=== PATIENT | female | born 1975 | race Caucasian/White ===

== ENCOUNTER 2024-01-12 05:48 | Observation (INO) | payer OTHER, SELFPAY ==
[2024-01-12] VITALS (19 sets, daily range): BP systolic 123–157; BP diastolic 78–99; PULSE 74–111; TEMP 36.4–36.9; O2SAT 90–100; BMI 29.8; BMI 29.5
--- NOTE | 2024-01-12 | OP_ITS ---
OPERATION DATE: 01/12/2024 PREOPERATIVE DIAGNOSIS: Acute appendicitis. POSTOPERATIVE DIAGNOSIS: Acute appendicitis. PROCEDURE: Laparoscopic appendectomy. SURGEON: Dimas Vivas M.D. ANESTHESIA: General endotracheal per Dr. Simon. ESTIMATED BLOOD LOSS: Less than 15 mL. INDICATIONS AND CONSENT: Patient is a 48-year-old female with a 12 hour history of abdominal pain in the lower abdomen, leukocytosis and CT scan consistent with acute appendicitis with fecalith. Indications, risks, benefits, alternatives of proceeding with laparoscopic appendectomy were explained extensively to the patient, including risks of bleeding, infection, bowel injury, appendiceal stump leak, blood clot, pulmonary embolus, heart attack, anesthetic complications, need for further surgery or open procedure. All of her questions were answered. Informed consent was obtained. PROCEDURE: Patient brought to the operating room, placed in the supine position. General anesthesia was induced. She was prepped and draped in the usual steroid fashion. Prior to that, a Jimenes catheter was inserted using a sterile technique. A supraumbilical incision was made with the scalpel blade and carried down through subcutaneous tissues using blunt dissection. The fascia was grasped and incised. Two 0 Vicryl stay sutures were placed on either side of the midline fascia. Ruben trocar was then inserted and secured using the stay sutures. The abdomen was then insufflated with carbon dioxide to a pressure of 15 mm/Hg. The scope was then inserted. The abdomen was visualized. Two 5 mm ports were then placed; one in the suprapubic area and one in the left lower quadrant, both under direct visualization. Patient was placed in the Trendelenburg position with the right side up. The appendix was noted to be slightly adhered to the right pelvic side wall. Patient was noted to have an enlarged uterus with multiple large fibroids, normal right ovary and tube. The appendix was grasped with an atraumatic grasper. There was no evidence of perforation or abscess. A window was then created in the avascular portion of the mesoappendix and the appendix was then stapled across its base using an endoscopic stapler, purple load, 45 mm length. The mesoappendix was then divided with the brunson vascular load, 45 mm length. The appendix was then brought out through the umbilical port site in an Endocatch bag. The abdomen was then copiously irrigated until clear. Suture lines were inspected and noted to be hemostatic. All port sites were examined upon withdrawal of the ports. There was noted to be good hemostasis. The umbilical port site fascia was then closed with a 0 Vicryl figure of eight suture. All port sites were infiltrated with 0.5% Marcaine. The skin was then closed with interrupted 4-0 subcuticular Monocryl sutures and skin glue. Sterile dressings applied to the umbilical incision. Patient tolerated the procedures well, was extubated, sent to recovery room in good condition. CC: Ofelia Rodriguez M.D. [facility]
--- NOTE | 2024-01-12 | CONS_ITS ---
CONSULTATION CONSULTATION DATE: ??01/12/2024 CHIEF COMPLAINT:? Abdominal pain. HISTORY OF PRESENT ILLNESS:? Patient is a 48-year-old female who presented to the emergency room with a four hour history of abdominal pain, primarily periumbilical and then localizing down to the right lower quadrant.? Workup in the emergency room revealed evidence of leukocytosis as well as CT findings of a dilated, inflamed appendix with a fecalith, evidence of perforation.? Patient denies any previous abdominal surgery, is on no aspirin or nonsteroidal anti- inflammatory drugs.? SOCIAL HISTORY:? Patient denies tobacco use or illicit drug use.? ALLERGIES:? Patient has no known drug allergies.? MEDICATIONS:? She is on no home medications.? PAST SURGICAL HISTORY:? Denies any previous surgical operations. FAMILY HISTORY:? Noncontributory. REVIEW OF SYSTEMS:? Ten system review of systems negative for recent weight loss or weight gain.? She denies increased fatigue or light-headedness, has had no headache or tinnitus.? No sinus congestion.? No sore throat or hoarseness.? No chest pain, palpitations or syncope.? No chronic cough, shortness of breath or hemoptysis.? She has had the abdominal pain, some nausea, emesis x1.? She has had some looser stools with a small amount of rectal bleeding.? No dysuria, frequency, urgency or hematuria.? No headaches, seizures or tremors.? No easy bruising or bleeding.? No heat or cold intolerance.? No polydipsia, polyphagia, polyuria. PHYSICAL EXAM:? Patient?s BMI is 30.? She is afebrile, tachycardic in the one- teens.? Blood pressure is 124/72.? Respiratory rate is 18.? O2 saturation is 95% on room air. General:? In general, she is a well developed, well nourished female, currently in no acute distress. HEENT:? Normocephalic, atraumatic.? Sclerae anicteric.? Conjunctivae are not injected.? Oral mucosa is moist without lesions.? Neck is supple.? There is no adenopathy or thyromegaly or JVD. Lungs are clear bilaterally. Cardiac exam is regular rhythm and rate without appreciable murmurs, rubs or gallops. Abdomen is soft.? There are positive bowel sounds.? There are right lower quadrant peritoneal signs.? No masses, hepatosplenomegaly or hernias.? No CVA tenderness. Skin is warm and dry without lesions, rashes or ulcers.? Neuro exam is non-focal, non-lateralizing.? Patient is awake, alert, oriented with appropriate affect. IMAGING:? CT scan images were personally reviewed.? CT scan is consistent with acute appendicitis.? Patient also has evidence of a fibroid, enlarged uterus. PLAN:? Indications, risks, benefits, alternatives of proceeding with laparoscopic appendectomy were explained extensively to the patient, including risks of bleeding, infection, scarring, pain, bowel injury, appendiceal stump leak, blood clot, pulmonary embolus, heart attack, anesthetic complications, need for further surgery or open procedure.? All of her questions were answered.? Informed consent was obtained.? She will be given IV antibiotics and proceed with appendectomy. CC:? Ofelia Rodriguez M.D. [facility] CENTERGeoff
--- NOTE | 2024-01-12 06:11 | CT_ITS ---
The [address] [address] Patient Name: MARIANNE BATISTA MRN: [id number] date: 1975 Sex: F Assigned Patient Location: ER Current Patient Location: ED.MAIN Accession/Order Number: [id number] Exam Date: 01/12/2024 06:40 Report Date: 01/12/2024 07:18 At the request of: LARISSA MARKER Procedure: CT abdomen pelvis w con EXAM: CT abdomen pelvis w con HISTORY: Lower abd pain and bleeding. COMPARISON: None. TECHNIQUE: Routine CT abdomen/pelvis with intravenous contrast. Dose reduction techniques were achieved by using automated exposure control and/or adjustment of mA and/or kV according to patient size and/or use of iterative reconstruction technique. FINDINGS: Lower chest: Unremarkable. Solid organs: The liver appears fatty infiltrated. The gallbladder, biliary tree, pancreas and left adrenal gland are unremarkable. There is a 1.6 x 1.1 cm right adrenal nodule measuring 37 Hounsfield units. There is retained lobulation along the contour of both kidneys. The left renal vein is retroaortic, a variant of normal. Bowel: The rectum is unremarkable. Nonobstructive bowel gas pattern with a small amount of stool within the colon. There are a few diverticula along the descending and sigmoid colon without diverticulitis. The appendix is dilated measuring up to 1.2 cm and contains a few appendicoliths measuring up to 0.6 cm there are mild stranding densities within the periappendiceal fat. In the right clinical setting these findings are consistent with acute appendicitis. The distal esophagus and stomach are unremarkable and the small bowel is normal caliber. Vasculature: The abdominal aorta is unremarkable. There are a few small atheromatous calcifications along the right common iliac artery. The left renal vein is retroaortic, a variant of normal. The IVC is unremarkable. Inflammation: As previously described. There is no free air, free fluid or abscess. Lymphadenopathy: There are no pathologically enlarged lymph nodes. Pelvis: The uterus is enlarged and fibroid. The adnexal regions are unremarkable. The urinary bladder is almost completely collapsed however grossly unremarkable. Musculoskeletal: There is a small of fat extending into the umbilicus. There is slight levoscoliosis of the lumbar spine. There are small endplate spurs at a few levels along the lumbar spine. CT/CT abdomen pelvis w con IMPRESSION: The appendix is dilated measuring up to 1.2 cm and contains a few appendicoliths measuring up to 0.6 cm there are mild stranding densities within the periappendiceal fat. In the right clinical setting these findings are consistent with acute appendicitis. The distal esophagus and stomach are unremarkable and the small bowel is normal caliber. There is no free air, free fluid or abscess. The bowel gas pattern is nonobstructive. There are a few diverticula along the descending and sigmoid colon without diverticulitis. The liver appears fatty infiltrated. There is a 1.6 x 1.1 cm right adrenal nodule measuring 37 Hounsfield units. The left renal vein is retroaortic, a variant of normal. The uterus is enlarged and fibroid. Electronically authenticated by: RO BOOGIE Date: 01/12/2024 07:18
--- NOTE | 2024-01-12 06:13 | ED_ITS ---
HPI - Abdominal Pain General Chief Complaint: Abdominal Pain Stated Complaint: ABD PAIN Time Seen by Provider: 01/12/24 05:51 Source: patient Mode of arrival: walk-in History of Present Illness HPI narrative: This 48-year-old female presents for evaluation of lower abdominal pain and bleeding from her rectum. The patient states that she woke up around 230 this morning with nausea and abdominal cramping. She went to the bathroom several times and had diarrhea. She did not look at her stool until the fifth and sixth time that she had diarrhea because it was dark in the bathroom. The last time she looked she saw bright red blood in the toilet. She is having lower abdominal cramping with her diarrhea. She states she feels hot and nauseated. She has not vomited. She states she has had diverticulitis in the past but that felt differently. She states she is concerned and anxious because her mother has problems with her colon. The patient denies any chest pain or shortness of breath. She last ate an oven pizza from [employer]. She has never had a colonoscopy. The pain is cramping and moderate to severe across her lower abdomen. She denies any back pain. She has never had any abdominal surgery in the past. She is on day 5 of her menstrual period but states that she does not have much bleeding at this point in her cycle. She took a Tylenol earlier this morning for pain. Related Data Previous Rx's ?Medication ?Instructions ?Recorded amoxicillin-potassium clavulanate 1 tab PO BID #7 tabs 01/12/24 1,000 mg-62.5 mg tablet,ext.rel 12hr (Augmentin XR) Allergies Allergy/AdvReac Type Severity Reaction Status Date / Time No Known Drug Allergies Allergy Verified 01/12/24 05:59 Review of Systems ROS Status of ROS 10 or more systems reviewed and unremark able except as noted in history and below [facility] PFS Surgical History (Updated 01/12/24 @ 09:27 by Ofelia Cochran LPN) H/O removal of cyst ?Z98.890 - Other specified postprocedural states (ICD-10) Family History (Updated 01/12/24 @ 09:27 by Ofelia Cochran LPN) Mother Family history of stroke Family history of hypertension Family history of diabetes mellitus Family history of COPD (chronic obstructive pulmonary disease) Father Family history of hypertension Family history of cancer Other Family history of CHF (congestive heart failure) Social History (Updated 01/12/24 @ 09:28 by Ofelia Cochran LPN) Smoking status: Former smoker Second hand tobacco smoke exposure: No Non-prescribed substance use: denies use 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 Known occupational exposures/hazards: No Highest level of school completed/degree received: Associate degree: occupational, technical, vocational program Are you now , , , , never or living with a partner: In a typical week, how many times do you talk on the telephone with family, friends, or neighbors: 3 or more times per week How often do you get together with friends or relatives: 3 or more times per week Little interest or pleasure in doing things: not at all Feeling down, depressed, or hopeless: not at all Feel stressed/tense/nervous/anxious/difficulty sleeping: not at all Due to disability, difficulty making decisions: No Do you think of yourself as: straight/heterosexual Gender Identity: female Exam Narrative Exam Narrative: Vital signs and Nursing Notes reviewed: Patient is afebrile, pulse is elevated at 92 and blood pressure is elevated at 157/97, she is not hypoxic with pulse ox of 100% on room air General: Awake, alert, oriented, uncomfortable appearing female, she is rubbing her lower abdomen, no respiratory distress HEENT: Normocephalic atraumatic, mucous membranes are moist and pink, eyes are clear, normal conjunctiva, vision is grossly intact Chest: Lungs are clear to auscultation with good air entry, there is no wheezing rhonchi or rales appreciated no accessory muscle use, patient is speaking in complete sentences-no chest wall tenderness to palpation CVS: Regular rate and rhythm S1-S2, no murmurs rubs or gallops, pulses are brisk and equal bilaterally ABD: Soft, diffusely tender, patient localizes to the right lower quadrant and left lower quadrant, there is mild referred tenderness with movement of the right leg but patient does not have specific McBurney's point tenderness. Palpation of the right upper quadrant refers pain into the lower abdomen, bowel sounds are normal/hypoactive Rectal exam- declined ( pt was given a hat to use if she needed to use the bathroom again so that we may see her stool) Extremities: Moving all extremities, no lower extremity tenderness or swelling noted, negative Homans' sign, pulses are brisk and equal bilaterally Skin: Normal in appearance without rash,pallor, petechiae or purpura Neuro: No focal deficits Constitutional Vital Signs, click to edit/add: Last Vital Signs Temp 98.1 F 01/12/24 16:39 Pulse 96 H 01/12/24 16:39 Resp 16 01/12/24 16:39 BP 124/81 01/12/24 16:39 Pulse Ox 93 L 01/12/24 16:39 O2 Del Method Room Air 01/12/24 16:39 O2 Flow Rate 2 01/12/24 15:41 Course Vital Signs Vital signs: Vital Signs Temperature 98.0 F 01/12/24 05:54 Pulse Rate 92 H 01/12/24 05:54 Respiratory Rate 16 01/12/24 05:54 Blood Pressure 157/97 H 01/12/24 05:54 Pulse Oximetry 100 01/12/24 05:54 Oxygen Delivery Method Room Air 01/12/24 05:54 Temperature 98.1 F 01/12/24 16:39 Pulse Rate 96 H 01/12/24 16:39 Respiratory Rate 16 01/12/24 16:39 Blood Pressure 124/81 01/12/24 16:39 Pulse Oximetry 93 L 01/12/24 16:39 Oxygen Delivery Method Room Air 01/12/24 16:39 Oxygen Delivery Flow Rate 2 01/12/24 15:41 MDM - Abdominal Pain MDM Narrative Medical decision making narrative: This 48-year-old female presents for evaluation of lower abdominal cramping associated with diarrhea and bleeding. She refused a rectal exam but did have to go to the bathroom and had a small bowel movement with bright red blood adjacent to it in a hat. This was sent to the lab. The patient refused any pain medication because she had taken Tylenol earlier this morning and does not like taking pain medication so she was medicated with IV fluids, Bentyl and Zo tino. Routine labs and CT scan are pending at this time. The patient does state that she has a history of diverticulitis. She will be signed out to the incoming physician at 7 AM. Lab Data Labs: Lab Results 01/12/24 01/12/24 Range/Units 06:20 06:24 WBC 15.3 H (4.0-11.0) 10^3/uL RBC 4.55 (4.20-5.40) 10^6/uL Hgb 10.0 L (12.0-16.0) g/dL Hct 34.3 L (36.0-48.0) % MCV 75.4 L (81.0-99.0) fL MCH 22.0 L (26.7-34.0) pg MCHC 29.2 L (29.9-35.2) g/dL RDW 16.4 H (11.0-15.0) % Plt Count 555 H (150-450) 10^3/uL MPV 9.2 L (9.5-13.5) fL Neut % (Auto) 86.2 H (43.0-75.0) % Lymph % (Auto) 8.3 L (20.5-60.0) % Bee % (Auto) 3.8 (1.7-12.0) % Eos % (Auto) 0.8 L (0.9-7.0) % Baso % (Auto) 0.4 (0.2-2.0) % Neut # (Auto) 13.2 H (1.4-6.5) 10^3/uL Lymph # (Auto) 1.3 (1.2-3.8) 10^3/uL Bee # (Auto) 0.6 (0.3-0.8) 10^3/uL Eos # (Auto) 0.1 (0.0-0.7) 10^3/uL Baso # (Auto) 0.1 (0.0-0.1) 10^3/uL Abs Immat Gran (auto) 0.07 H (0.00-0.03) 10^3/uL Imm/Tot Granulo (auto) 0.5 (0.0-0.5) % Lactate 2.3 H* (0.4-2.0) mmol/L Stool Occult Blood Positive A Stl C. cayetanensis PCR Not detected (NOT DETECTE) Stool Rotavirus (PCR) Not detected (NOT DETECTE) Stool Adenovirus (PCR) Not detected (NOT DETECTE) Stool Astrovirus (PCR) Not detected (NOT DETECTE) Stool Campylobacter PCR Not detected (NOT DETECTE) Stool Cryptosporidium PCR Not detected (NOT DETECTE) St Sh/Enteroin Ecoli PCR Not detected (NOT DETECTE) Stl Enterotoxigenic E PCR Not detected (NOT DETECTE) Stool EPEC (PCR) Not detected (NOT DETECTE) Stl E. histolytica PCR Not detected (NOT DETECTE) Stool Giardia Lamblia PCR Not detected (NOT DETECTE) Stl P. shigelloides PCR Not detected (NOT DETECTE) Stool Salmonella PCR Not detected (NOT DETECTE) Stool Sapovirus (PCR) Not detected (NOT DETECTE) Stl Shiga-like Tx 1 PCR Not detected (NOT DETECTE) St Y.enterocolitica PCR Not detected (NOT DETECTE) Stl Vibrio cholerae PCR Not detected (NOT DETECTE) Stl Enteroaggr Ecoli PCR Not detected (NOT DETECTE) Stl Norovirus GI/GII PCR Not detected (NOT DETECTE) Specimen Source Stool C. difficile Toxin A&B Not detected (NOT DETECTE) Vibrio Culture Not detected (NOT DETECTE) Blood Type O Negative Antibody Screen Negative Discharge Plan Discharge Chief Complaint: Abdominal Pain Clinical Impression: Acute GI bleeding, Acute appendicitis Patient Disposition: Admitted As Inpatient Time of Disposition Decision: 07:35 Discharge Date/Time: 01/12/24 08:45
[2024-01-12] MEDS: 0.9 % SODIUM CHLORIDE 1,000 ML 1000 ML IV (06:28)
[2024-01-12] MEDS: ONDANSETRON PF 4 MG/2 ML VIAL IV (06:28)
[2024-01-12] MEDS: DICYCLOMINE HCL 10 MG CAPSULE 20 MG PO (06:29)
[2024-01-12 06:32] LABS: Campylobacter NOT DETECTED (NOT DETECTE); Enteroaggregative E.coli NOT DETECTED (NOT DETECTE); Plesiomonas shigelloides NOT DETECTED (NOT DETECTE); Salmonella NOT DETECTED (NOT DETECTE); Vibrio NOT DETECTED (NOT DETECTE); Vibrio cholerae NOT DETECTED (NOT DETECTE); Yersinia enterocolitica NOT DETECTED (NOT DETECTE)
[2024-01-12 06:33] LABS: Adenovirus F 40/41 NOT DETECTED (NOT DETECTE); Astrovirus NOT DETECTED (NOT DETECTE); Cryptosporidium NOT DETECTED (NOT DETECTE); Cyclospora cayetanensis NOT DETECTED (NOT DETECTE); Entamoeba histolytica NOT DETECTED (NOT DETECTE); Enteropathogenic E.coli NOT DETECTED (NOT DETECTE); Enterotoxigenic E. coli NOT DETECTED (NOT DETECTE); Giardia lamblia NOT DETECTED (NOT DETECTE); Norovirus GI/GII NOT DETECTED (NOT DETECTE); Rotavirus A NOT DETECTED (NOT DETECTE); Sapovirus NOT DETECTED (NOT DETECTE); Shiga-like toxin-producing E.C NOT DETECTED (NOT DETECTE); Shigella/Enteroinvasive E.coli NOT DETECTED (NOT DETECTE)
[2024-01-12 06:38] LABS: Basophils Absolute Auto 0.1 10^3/uL (0.0-0.1); Basophils Percent Auto 0.4 % (0.2-2.0); Eosinophils Absolute Auto 0.1 10^3/uL (0.0-0.7); Eosinophils Percent Auto 0.8 % (0.9-7.0); Hematocrit 34.3 % (36.0-48.0); Immature Granulocytes Abs Auto 0.07 10^3/uL (0.00-0.03); Immature Granulocytes Pct Auto 0.5 % (0.0-0.5); Lymphocytes Absolute Auto 1.3 10^3/uL (1.2-3.8); Lymphocytes Percent Auto 8.3 % (20.5-60.0); Mean Corpuscular HGB Conc 29.2 g/dL (29.9-35.2); Mean Corpuscular Volume 75.4 fL (81.0-99.0); Mean Platelet Volume 9.2 fL (9.5-13.5); Monocytes Absolute Auto 0.6 10^3/uL (0.3-0.8); Monocytes Percent Auto 3.8 % (1.7-12.0); Neutrophils Absolute Auto 13.2 10^3/uL (1.4-6.5); Neutrophils Percent Auto 86.2 % (43.0-75.0); Platelet Count 555 10^3/uL (150-450); Red Blood Count 4.55 10^6/uL (4.20-5.40); Red Cell Distribution Width 16.4 % (11.0-15.0); White Blood Count 15.3 10^3/uL (4.0-11.0)
[2024-01-12] MEDS: PIPERACILLIN SODIUM/TAZOBACTAM 3.375 GM in 0.9 % SODIUM CHLORIDE 50 ML IV ×3 (07:41→23:14)
[2024-01-12] MEDS: MORPHINE SULFATE 4 MG/ML VIAL IV (07:41)
[2024-01-12 07:43] LABS: Lactate/Lactic Acid 2.3 mmol/L (0.4-2.0)
--- NOTE | 2024-01-12 08:34 | P.HP_ITS ---
HPI H&P: HPI History of Present Illness Chief complaint: ACUTE APPENDICITIS Narrative: Acute onset of abdominal pain about 4 hours prior to coming into the emergency room. CT scan emergency room shows likely acute appendicitis, also leukocytosis and positive lactate with tachycardia. When I saw patient in the ER, patient fairly uncomfortable from a pain standpoint. Denies any other complaints, no URI complaints no UTI complaints no gastroenteritis symptoms other than the abdominal pain, no history of heart disease or strokes. Opioid HPI Opioid Management Most Recent Pain and Opioid Data: Last Pain Scale 8 01/12/24 09:52 Last Pain Assessment 01/12/24 10:20 Last ED Pain Assessment 01/12/24 08:15 Last MAR Pain Assessment 01/12/24 09:52 Last ORT Total Score 0 01/12/24 09:38 Last ORT Risk Category Low Risk 01/12/24 09:38 Review of Systems ROS Status of ROS 10 or more systems reviewed and unremark able except as noted in history and below PFSH PFSH Surgical History (Updated 01/12/24 @ 09:27 by Ofelia Cochran LPN) H/O removal of cyst ?Z98.890 - Other specified postprocedural states (ICD-10) Family History (Updated 01/12/24 @ 09:27 by Ofelia Cochran LPN) Mother Family history of stroke Family history of hypertension Family history of diabetes mellitus Family history of COPD (chronic obstructive pulmonary disease) Father Family history of hypertension Family history of cancer Other Family history of CHF (congestive heart failure) Social History (Updated 01/12/24 @ 09:28 by Ofelia Cochran LPN) Smoking status: Former smoker Second hand tobacco smoke exposure: No Non-prescribed substance use: denies use 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 Known occupational exposures/hazards: No Highest level of school completed/degree received: Associate degree: occupational, technical, vocational program Are you now , , , , never or living with a partner: In a typical week, how many times do you talk on the telephone with family, friends, or neighbors: 3 or more times per week How often do you get together with friends or relatives: 3 or more times per week Little interest or pleasure in doing things: not at all Feeling down, depressed, or hopeless: not at all Feel stressed/tense/nervous/anxious/difficulty sleeping: not at all Due to disability, difficulty making decisions: No Do you think of yourself as: straight/heterosexual Gender Identity: female Meds Home Medications and Allergies Home Medications ?Medication ?Instructions ?Recorded ?Confirmed ?Type No Known Home Medications 01/12/24 01/12/24 History Allergies Allergy/AdvReac Type Severity Reaction Status Date / Time No Known Drug Allergies Allergy Verified 01/12/24 05:59 Exam Constitutional Vital Signs, click to edit/add: Last Vital Signs Temp 98.0 F 01/12/24 05:54 Pulse 74 01/12/24 08:22 Resp 16 01/12/24 08:22 BP 137/80 01/12/24 08:22 Pulse Ox 96 01/12/24 08:22 O2 Del Method Room Air 01/12/24 08:22 Documenting provider has reviewed patient's vital signs: yes Common normals: apparent distress (Moderate painful to) Chest Common normals: inspection of chest normal Respiratory Common normals: normal respiratory effort Cardio Common normals: regular rate, regular rhythm and no murmurs GI Common normals: Normal to inspection, nondistended, normoactive bowel sounds present and soft to palpation; tender Palpation: tender (no rebound tenderness) Details: Rovsing's sign Extremity Common normals: normal to inspection Neuro Common normals: oriented x3 Results Labs Labs: Short CBC 01/12/24 Range/Units 06:24 WBC 15.3 H (4.0-11.0) 10^3/uL Hgb 10.0 L (12.0-16.0) g/dL Hct 34.3 L (36.0-48.0) % Plt Count 555 H (150-450) 10^3/uL Assessment and Plan Assessment and Plan (1) Acute appendicitis: Plan Sinus tachycardia, uncontrolled hypertension, leukocytosis, positive lactate, thrombocythemia secondary to acute appendicitis resulting in severe sepsis-IV fluids, IV antibiotics, blood cultures pending, surgical intervention later today. Plan per surgery postoperatively. History of diverticulosis-this does not feel like her flareup of diverticulitis in the past Iron deficiency anemia-follows an outpatient L Admission status: Although patient does meet severe sepsis criteria, after post appendectomy if it is unruptured discharge disposition per surgery, possible discharge to home later today depending on findings at surgery
[2024-01-12] MEDS: LACTATED RINGER'S SOLUTION 1,000 ML 100 ML IV ×3 (09:23→23:20)
[2024-01-12 09:45] LABS: HCG Qualitative NEGATIVE (NEGATIVE); Internal Control Within Normal Limits
[2024-01-12] MEDS: HYDROMORPHONE HCL 1 MG/ML CARTRIDGE IV (09:52)
[2024-01-12 09:54] LABS: Alanine Aminotransferase 33 U/L (14-59); Albumin Globulin Ratio 0.9; Albumin Level 3.5 g/dL (3.4-5.0); Alkaline Phosphatase 96 U/L (46-116); Anion Gap 12.7; Aspartate Amino Transferase 17 U/L (15-37); BUN Creatinine Ratio 8.3; Bilirubin Total 0.4 mg/dL (0.2-1.0); Calcium 8.4 mg/dL (8.5-10.1); Carbon Dioxide 24.3 mmol/L (21.0-32.0); Chloride 102 mmol/L (98-107); Estimated GFR (African America >60 (>=60); Estimated GFR (Non-African Ame >60 (>=60); Globulin 3.9 g/dL; Glucose 137 mg/dL (74-106); Sodium 135 mmol/L (136-145); Total Protein 7.4 g/dL (6.4-8.2)
[2024-01-12 10:02] LABS: Lactate/Lactic Acid 2.3 mmol/L (0.4-2.0)
[2024-01-12 12:02] LABS: Internal Control Within Normal Limits; Occult Blood Positive
[2024-01-12] MEDS: HYDROMORPHONE HCL 1 MG/ML CARTRIDGE INJ (12:42)
[2024-01-12] MEDS: BUPIVACAINE HCL 0.5% PF 50 MG/10 ML VIAL 20 ML INJ (14:38)
--- NOTE | 2024-01-12 15:19 | PC.NURSE ---
added oxygen due to desaturation when she falls back asleep
[2024-01-12] MEDS: ACETAMINOPHEN 500 MG TABLET 1000 MG PO ×2 (16:43→23:14)
[2024-01-12] MEDS: PANTOPRAZOLE SODIUM 40 MG VIAL IV (17:02)
[2024-01-13] VITALS: BP 119/77; PULSE 110; TEMP 36.4; O2SAT 92
[2024-01-13 03:46] VITALS: BP 107/69; PULSE 110; TEMP 36.9; O2SAT 90
[2024-01-13 04:18] VITALS: O2SAT 91
[2024-01-13 05:43] LABS: Basophils Percent Auto 0.1 % (0.2-2.0); Hematocrit 27.9 % (36.0-48.0); Hemoglobin 8.4 g/dL (12.0-16.0); Immature Granulocytes Abs Auto 0.08 10^3/uL (0.00-0.03); Immature Granulocytes Pct Auto 0.6 % (0.0-0.5); Lymphocytes Absolute Auto 0.9 10^3/uL (1.2-3.8); Mean Corpuscular HGB Conc 30.1 g/dL (29.9-35.2); Mean Corpuscular Hemoglobin 22.2 pg (26.7-34.0); Mean Corpuscular Volume 73.8 fL (81.0-99.0); Mean Platelet Volume 9.4 fL (9.5-13.5); Monocytes Percent Auto 6.7 % (1.7-12.0); Neutrophils Absolute Auto 12.3 10^3/uL (1.4-6.5); Neutrophils Percent Auto 86.6 % (43.0-75.0); Platelet Count 434 10^3/uL (150-450); Red Blood Count 3.78 10^6/uL (4.20-5.40); Red Cell Distribution Width 16.5 % (11.0-15.0); White Blood Count 14.2 10^3/uL (4.0-11.0)
[2024-01-13 06:22] LABS: Alanine Aminotransferase 26 U/L (14-59); Albumin Globulin Ratio 0.8; Alkaline Phosphatase 76 U/L (46-116); Anion Gap 14.3; Aspartate Amino Transferase 11 U/L (15-37); BUN Creatinine Ratio 8.5; Bilirubin Total 0.6 mg/dL (0.2-1.0); Calcium 8.1 mg/dL (8.5-10.1); Carbon Dioxide 25.2 mmol/L (21.0-32.0); Chloride 105 mmol/L (98-107); Estimated GFR (African America >60 (>=60); Estimated GFR (Non-African Ame >60 (>=60); Globulin 3.7 g/dL; Glucose 122 mg/dL (74-106); Potassium 3.5 mmol/L (3.5-5.1); Sodium 141 mmol/L (136-145); Total Protein 6.7 g/dL (6.4-8.2)
--- NOTE | 2024-01-13 07:10 | P.GSPN_ITS ---
Progress Note: A&P Assessment and Plan (1) Acute appendicitis: Assessment and Plan: POD # 1 s/p LS appendectomy for acute appendicitis with localized peritonitis, no perforation or abscess; doing well; decreased wbc, h/h decreased as expected from surgery/hydration; tolerating some regular diet, no N/V; voiding well, pain controlled with Tylenol. Plan discharge to home today; 3 days of oral Augmentin; Aleve as needed for pain, off work at least 1 week; no lifting > 10 lbs for 4 weeks; may shower, no swimming/tub baths for 1 week; follow up with me next Wednesday, January 18 in the [place] office; call sooner if problems/questions. Subjective Subjective Patient reports: no new complaints, feels better, pain is less and voiding w/o difficulty Exam Narrative Exam Narrative: abd: soft, nontender, mild distension, normal bs; incisions without erythema or drainage; no ecchymoses. Constitutional Vital Signs, click to edit/add: Last Vital Signs Temp 98.5 F 01/13/24 03:46 Pulse 110 H 01/13/24 03:46 Resp 14 01/13/24 03:46 BP 107/69 01/13/24 03:46 Pulse Ox 91 L 01/13/24 04:18 O2 Del Method Room Air 01/13/24 04:18 O2 Flow Rate 2 01/12/24 15:41 Urinary Catheter Management Urinary Catheter Management Urethral: Cath placed during this visit: no
[2024-01-13] MEDS: PIPERACILLIN SODIUM/TAZOBACTAM 3.375 GM in 0.9 % SODIUM CHLORIDE 50 ML IV (07:40)
[2024-01-13] MEDS: ACETAMINOPHEN 500 MG TABLET 1000 MG PO (08:18)
[2024-01-13] MEDS: 0.9 % SODIUM CHLORIDE 1,000 ML 1000 ML IV (08:19)
[2024-01-13 08:23] VITALS: BP 124/72; PULSE 112; TEMP 37.6; O2SAT 90
--- NOTE | 2024-01-13 08:37 | P.DS_ITS ---
DS: Providers Provider Date of admission: 01/12/24 08:44 Primary care physician: JOANNA MURRAY Consults: 01/12/24 08:29 Consult to General Surgeon Routine Consulting Provider: Dimas Vivas Reason for consultation: appendicitis Has provider been notified: Yes Consult to Pharmacy Routine Consulting Provider: Reason for consultation: Please Warren me when Med Rec is Updated Has provider been notified: No DS: Diagnosis Discharge Diagnosis (1) Acute appendicitis: Plan Sinus tachycardia, uncontrolled hypertension, leukocytosis, positive lactate, thrombocythemia secondary to acute appendicitis resulting in severe sepsis- improving at the time of discharge status post appendectomy History of diverticulosis-as above Iron deficiency anemia-likely related to vaginal bleeding from large fibroid Admission status: Although patient does meet severe sepsis criteria, after post appendectomy if it is unruptured discharge disposition per surgery, possible discharge to home later today depending on findings at surgery ? DS: Summary Hospital Course Hospital Course: Patient was admitted, placed on IV antibiotic Zosyn for acute appendicitis, unruptured on CT scan, she went to surgery later in the day, appendix still not ruptured at the time, removed without difficulty, postoperatively patient very somnolent and slow to improve. She was watched overnight for that reason. Although understanding her white blood cell count is still elevated she feels much improved, it was unruptured, placed her on oral antibiotics for 5 days. Medically stable. Discussed case with surgery. Here for discharge. Medications see list. Follow-up with PCP and surgery per protocol Status at Discharge Overall status at discharge: patient is not back to baseline Time Spent with Patient Time attestation: Total time spent providing and/or coordinating discharge services: Time spent: greater than 30 minutes Exam Constitutional Vital Signs, click to edit/add: Last Vital Signs Temp 99.6 F 01/13/24 08:23 Pulse 112 H 01/13/24 08:23 Resp 20 01/13/24 08:23 BP 124/72 01/13/24 08:23 Pulse Ox 90 L 01/13/24 08:23 O2 Del Method Room Air 01/13/24 08:23 O2 Flow Rate 2 01/12/24 15:41 Documenting provider has reviewed patient's vital signs: yes Common normals: apparent distress (Moderate painful to) Chest Common normals: inspection of chest normal Respiratory Common normals: normal respiratory effort Cardio Common normals: regular rate, regular rhythm and no murmurs GI Common normals: Normal to inspection, nondistended, normoactive bowel sounds present and soft to palpation; tender Palpation: tender (no rebound tenderness) Details: Rovsing's sign Extremity Common normals: normal to inspection Neuro Common normals: oriented x3 DS: Data Data Completed and Pending Labs on day of discharge: Labs from last 24 hours 01/13/24 01/12/24 01/12/24 04:47 09:24 06:20 WBC 14.2 H RBC 3.78 L Hgb 8.4 L Hct 27.9 L MCV 73.8 L MCH 22.2 L MCHC 30.1 RDW 16.5 H Plt Count 434 MPV 9.4 L Neut % (Auto) 86.6 H Lymph % (Auto) 6.0 L [place] % (Auto) 6.7 Eos % (Auto) 0.0 L Baso % (Auto) 0.1 L Neut # (Auto) 12.3 H Lymph # (Auto) 0.9 L [place] # (Auto) 1.0 H Eos # (Auto) 0.0 Baso # (Auto) 0.0 Abs Immat Gran (auto) 0.08 H Imm/Tot Granulo (auto) 0.6 H Sodium 141 135 L Potassium 3.5 4.0 Chloride 105 102 Carbon Dioxide 25.2 24.3 Anion Gap 14.3 12.7 BUN 6.0 L 6.0 L Creatinine 0.71 0.72 Est GFR ( Amer) >60 >60 Est GFR (Non-Af Amer) >60 >60 BUN/Creatinine Ratio 8.5 8.3 Glucose 122 H 137 H Lactate 2.3 H* Calcium 8.1 L 8.4 L Total Bilirubin 0.6 0.4 AST 11 L 17 ALT 26 33 Alkaline Phosphatase 76 96 Total Protein 6.7 7.4 Albumin 3.0 L 3.5 Globulin 3.7 3.9 Albumin/Globulin Ratio 0.8 0.9 Lipase 20.0 Serum HCG, Qual Negative Stool Occult Blood Positive A Discharge Plan Discharge Disposition: Home, Self-Care Discharge Medications: New amoxicillin-pot clavulanate [Augmentin XR] 1,000-62.5 mg tablet extended release 12 hr 1 tab PO BID Qty: 7 0RF Activity: increase activity as tolerated Activity Detail: may shower, no tub baths or swimming for 1 week; no lifting > 10 lbs for 4 weeks; take Aleve as needed for pain; off work 1 week. Diet: advance to your usual diet Print Language: Georgian Patient Instructions: Appendicitis (GEN) Forms: Portal Instructions Follow Up Appointments: January 18 @ 4:20pm with Dr. Vivas [address] [place] [address] [phone] Discharge Date/Time: 01/13/24 11:06
[2024-01-13 09:58] VITALS: O2SAT 92
--- NOTE | 2024-01-13 11:03 | CM.NOTE ---
Rounds made with Dr. Lee. Dr. Lee reviewed labs & plan of care with Elaine. Discussed + occult blood and may need to followup w outpt colonoscopy and for Elaine to discuss this further with her PCP. Dr Lee also discussed need for Elaine to followup with [facility] to address the fibroid. Elaine verbalized understanding. Plan is for discharge today.
--- NOTE | 2024-01-18 16:06 | CM.DCFOLLOWU ---
Person spoke with:patient How are you feeling? was having breathing issues, but feels they worked themselves out How is your pain? none Did you understand your discharge instructions? yes Do you have any questions about your discharge instructions? no Were you given any prescriptions at discharge? yes Were you able to get your prescriptions filled? yes Do you understand how to take your medications as ordered? yes Do you have any questions about your follow up appointment and do you plan to keep your follow up appointment? no questions, follow up tomorrow with Dr. Vivas Is there anything else that you would like to discuss? no Questions/Comments/Concerns/Other: no
--- NOTE | 2024-01-18 16:16 | CM.DCFOLLOWU ---
2nd attempt 01/18/24
== END 2024-01-13 11:06 | disposition home or self-care (01) ==
LOC: ER 08:26 → MS 08:54
PROVIDERS: Emergency Medicine; Surgery; Admitting Provider Family Medicine; Emergency Provider Emergency Medicine; PCP Family Medicine; Visit Provider Family Medicine
PROC: (CPT 840; principal; 2024-01-12 11:20)
DX: A41.9 Sepsis, unspecified organism (principal); R65.20 Severe sepsis without septic shock; K35.80 Unspecified acute appendicitis; R00.0 Tachycardia, unspecified; I10 Essential (primary) hypertension; D69.6 Thrombocytopenia, unspecified; D50.9 Iron deficiency anemia, unspecified; D25.9 Leiomyoma of uterus, unspecified; D72.829 Elevated white blood cell count, unspecified; R79.89 Other specified abnormal findings of blood chemistry; Z87.891 Personal history of nicotine dependence; N93.9 Abnormal uterine and vaginal bleeding, unspecified; K57.30 Diverticulosis of large intestine without perforation or abscess without bleeding; R19.7 Diarrhea, unspecified
CPT/HCPCS: 44970; 36415; 74177; 80053; 83605; 83690; 84703; 85025; 86850; 86900; 86901; 87507; 88304; 94667; 94761; 96361; 96365; 96372; 96375; 96376; 99285; G0328; G0378; J0330; J0665; J1100; J1170; J2250; J2270; J2405; J2543; J2704; J3010; Q9967

== ENCOUNTER 2024-05-04 10:35 | Outpatient (REF) | payer OTHER, SELFPAY | END 2024-05-04 10:36 | disposition home or self-care (01) | LOC: LAB 10:35 | PROVIDERS: PCP Family Medicine; Visit Provider Obstetrics & Gynecology | DX: N85.2 Hypertrophy of uterus (principal) ==

== ENCOUNTER 2024-05-15 13:25 | Outpatient (OUT) | payer OTHER, SELFPAY ==
--- OUTSIDE RECORDS SUMMARY | 2024-05-15 13:37 | XMS_ITS | CCD ---
Author Organization [facility] CliniSymi Care Team Providers Care Lean Specialist Name Role Phone OFELIA MURRAY Primary Care Unavailable JEREMIAH RUGGIERO Attending JEREMIAH Villarreal Consulting JEREMIAH Villarreal Admitting Unavailable Ofelia Murray MD Primary Care Provider MD Dimas Vivas Attending Provider OFELIA MURRAY Primary Care Physician Dimas VIVAS Attending Unavailable Dimas VIVAS Attending Unavailable OFELIA MURRAY Attending Unavailable OFELIA UMRRAY Referring Unavailable APLING, GALINA Schaefer Attending Unavailable JEANCARLOS DEL VALLE Attending Unavailable APLING, GALINA Schaefer Referring Unavailable HOASAMANTHA FAJARDO Attending Unavailable JEANCARLOS DEL VALLE Attending Unavailable APLING, GALINA Schaefer Referring Unavailable BLACKSTONJEANCARLOS Attending Unavailable APLING, GALINA Schaefer Referring Unavailable BLACKSTONJEANCARLOS Attending Unavailable APLING, GALINA Schaefer Referring Unavailable APLING, GALINA Schaefer Attending Unavailable HUE FISHER Attending Unavailable HUE FISHER Referring Unavailable FLORHUE Rose Referring Unavailable TONIA BIRMINGHAM Attending Unavailable HUE FISHER Referring Unavailable TONIA BIRMINGHAM Attending Unavailable DO Tonia Birmingham Attending Provider [phone] Dimas Vivas Admitting Unavailable Dimas Vivas Attending Unavailable Tonia Birmingham Attending Unavailable Tonia Birmingham Admitting Unavailable Medications Current Medications Medication Drug Class(es) Dates Sig (Normalized) Sig (Original) fluocinonide 0.5 mg/ml topical solution (1 source) Corticosteroid Start: 09-07-2023 fluocinonide (Lidex) 0.05 % external solution Indications: Psoriasis vulgaris (CMS/HCC) Apply to affected areas on the scalp once a day when flared 60 mL 11 09/07/2023 Active hydrocortisone 25 mg/ml topical cream (1 source) Corticosteroid Start: 09-07-2023 hydrocortisone 2.5 % cream Indications: Psoriasis vulgaris (CMS/HCC) Apply to affected areas on the face bid when flared 28 g 11 09/07/2023 Active ketoconazole 20 mg/ml medicated shampoo (1 source) Azole Antifungal Start: 09-09-2023 ketoconazole (NIZOral) 2 % shampoo Indications: Psoriasis vulgaris (CMS/HCC) Apply topically 2 (two) times a week Lather on the scalp and then rinse off a few minutes later. Use a couple times a week 120 mL 11 09/09/2023 Active triamcinolone acetonide 0.001 mg/mg topical ointment (1 source) Corticosteroid Start: 09-07-2023 triamcinolone (Kenalog) 0.1 % ointment Indications: Psoriasis vulgaris (CMS/HCC) Apply topically 2 (two) times a day Apply to affected areas on the ears bid when flared. Avoid the face, armpits, and groin 60 g 09/07/2023 Active Problems Active Problems Problem Classification Problem Date Documented Da te Episodic/Chronic Abdominal pain (1 source) Pain in female pelvis; Translations: [Pelvic and perineal pain] 05-04-2024 Episodic Anxiety disorders (4 sources) Anxiety; Translations: [Other specified anxiety disorders] Onset: 08-31-2023 08-31-2023 Chronic Appendicitis and other appendiceal conditions (2 sources) Acute appendicitis with localized peritonitis; Translations: [Acute appendicitis with localized peritonitis, without perforation or gangrene] Onset: 01-19-2024 Episodic Immunizations and screening for infectious disease (4 sources) Contact with and (suspected) exposure to other viral communicable diseases; Translations: [CONTCT EXPS OTH VIRL COMMUNICABL DZ] Onset: 06-04-2020 Episodic Menstrual disorders (2 sources) Menorrhagia; Translations: [Excessive and frequent menstruation with regular cycle] 05-04-2024 Chronic Other female genital disorders (1 source) Pain in female genitalia on intercourse; Translations: [Unspecified dyspareunia] 05-04-2024 Chronic Other female genital disorders (1 source) Enlarged uterus; Translations: [Hypertrophy of uterus] 05-04-2024 Episodic Other inflammatory condition of skin (3 sources) Psoriasis vulgaris; Translations: [Psoriasis vulgaris] Onset: 08-31-2023 08-31-2023 Chronic Other inflammatory condition of skin (4 sources) Scalp psoriasis; Translations: [Psoriasis, unspecified] Onset: 08-31-2023 08-31-2023 Chronic Other lower respiratory disease (1 source) Cough; Translations: [COUGH] Onset: 06-08-2020 Episodic Other upper respiratory infections (1 source) Acute pharyngitis, unspecified; Translations: [ACUTE PHARYNGITIS UNSPECIFIED] Onset: 06-08-2020 Episodic Past or Other Problems Problem Classification Problem Date Documented Da te Episodic/Chronic Other non-traumatic joint disorders (3 sources) Pain of left wrist; Translations: [Pain in left wrist] Onset: 09-07-2023 08-31-2023 Episodic Other non-traumatic joint disorders (1 source) Instability of joint of left wrist; Translations: [Other instability, left wrist] Onset: 09-07-2023 09-07-2023 Episodic Results Test Name Value Interpretation Reference Range Facil ity HCG ( test) Ql (U)o n 05-04-2024 Interpretation and review of laboratory results Normal [facility] Healthcare Preg Test, Ur Negative [facility] Health care [facility] Pathology Request for Lab Co rpon 05-04-2024 Pathology Request for Lab Jason Normal [facility] Comment on above: Order Comment: PATHO LOGY WATER MAIN INSTALLER HELPER SPECIMEN Result Comment: See report. Scanned copy available in EMR. PERFORMED BY: [place] [address] PATHOLOGIST DELIVERY MOTORCYCLE DRIVER ANNY MAYES M.D. Performed By: #### P ATH TO [facility] #### [address] BI MAMMOGRAM DIAGNOSTIC KILLIAN SYNTHESIS LEFTon 03-14-2024 BI MAMMOGRAM DIAGNOSTIC TOMOSYNTHESIS LEFT This is a summary report. The complete report is available in the patient's medical record. If you cannot access the medical record, please contact the sending organization for a detailed fax or copy. EXAMINATION: BI MAMMOGRAM DIAGNOSTIC TOMOSYNTHESIS LEFT CLINICAL HISTORY:abnormal mammogram COMPARISON: March 01, 2024 . RESULT: Density: There are scattered areas of fibroglandular density With spot compression no suspicious nodule or mass corresponds with mammogram abnormality, March 01, 2024. Please see ultrasound report. IMPRESSION: BIRADS 2 - Benign Follow-up: Routine Screening Mamm IMPRESSION: CATEGORY 2 ? Benign. Board Certified Radiologists. Accredited by the ACR and FDA. MAMMOGRAPHY IS VERY IMPORTANT TO YOUR HEALTH. THE [employer] GUIDELINES RECOMMEND THAT WOMEN 40 YEARS OF AGE AND OLDER SHOULD HAVE A MAMMOGRAM EVERY YEAR. A REMINDER LETTER WILL BE SENT AT THE APPROPRIATE TIME. THIS FACILITY UTILIZES A REMINDER SYSTEM TO ENSURE ALL PATIENTS RECEIVE REMINDER NOTIFICATIONS AT THE APPROPRIATE TIME BASED ON THE RECOMMENDATIONS OF THIS EXAM. THIS INCLUDES REMINDERS FOR ROUTINE SCREENING MAMMOGRAMS, DIAGNOSTIC MAMMOGRAMS IN WHICH THE PATIENT IS ASKED TO RETURN FOR ADDITIONAL VIEWS, OR OTHER BREAST IMAGING INTERVENTIONS WHEN APPROPRIATE. THE PATIENT WILL BE PLACED IN THE APPROPRIATE REMINDER SYSTEM INCLUDING A REMINDER AT THE APPROPRIATE TIME FOR ANY PENDING ADDITIONAL VIEWS. TRANSCRIBED BY: ELECTRONICALLY SIGNED BY: Arnol Delarosa MD Normal Not Available BI US BREAST LIMITED LEFTon 03-14-2024 BI US BREAST LIMITED LEFT This is a summary report. The complete report is available in the patient's medical record. If you cannot access the medical record, please contact the sending organization for a detailed fax or copy. FINDINGS: Sonographic evaluation of the breast demonstrates no worrisome cystic or solid mass lesions. 3 x 4 mm benign cyst 1 o'clock location may contribute to the mammogram findings. Reference is made to the same day left breast mammogram and recent bilateral mammogram of of March 01 2024. IMPRESSION: CATEGORY 2 ? Benign. TRANSCRIBED BY: ELECTRONICALLY SIGNED BY: Arnol Delarosa MD Normal Not Available BI MAMMOGRAM SCREENING TOMOS YNTHESIS BILATERALon 03-01-2024 BI MAMMOGRAM SCREENING TOMOSYNTHESIS BILATERAL This is a summary report. The complete report is available in the patient's medical record. If you cannot access the medical record, please contact the sending organization for a detailed fax or copy. EXAMINATION: BI MAMMOGRAM SCREENING TOMOSYNTHESIS BILATERAL CLINICAL HISTORY:breast cancer screen COMPARISON: There are no previous mammograms available for comparison. RESULT: Density: There are scattered areas of fibroglandular density RIGHT BREAST: Typically benign calcifications. There is no suspicious mass, asymmetry, architectural distortion, or calcification LEFT BREAST: 1 cm focal asymmetry upper outer quadrant posterior depth. No suspicious microcalcification. No significant axillary lymphadenopathy. IMPRESSION: BIRADS 0 - Need Additional Imaging Evaluation Follow-up: Short Interval Follow-up Recommend spot compression left upper outer quadrant CC and MLO projections, true lateral view, and ultrasound left upper outer quadrant Board Certified Radiologists. Accredited by the ACR and FDA. MAMMOGRAPHY IS VERY IMPORTANT TO YOUR HEALTH. THE [employer] GUIDELINES RECOMMEND THAT WOMEN 40 YEARS OF AGE AND OLDER SHOULD HAVE A MAMMOGRAM EVERY YEAR. A REMINDER LETTER WILL BE SENT AT THE APPROPRIATE TIME. THIS FACILITY UTILIZES A REMINDER SYSTEM TO ENSURE ALL PATIENTS RECEIVE REMINDER NOTIFICATIONS AT THE APPROPRIATE TIME BASED ON THE RECOMMENDATIONS OF THIS EXAM. THIS INCLUDES REMINDERS FOR ROUTINE SCREENING MAMMOGRAMS, DIAGNOSTIC MAMMOGRAMS IN WHICH THE PATIENT IS ASKED TO RETURN FOR ADDITIONAL VIEWS, OR OTHER BREAST IMAGING INTERVENTIONS WHEN APPROPRIATE. THE PATIENT WILL BE PLACED IN THE APPROPRIATE REMINDER SYSTEM INCLUDING A REMINDER AT THE APPROPRIATE TIME FOR ANY PENDING ADDITIONAL VIEWS. TRANSCRIBED BY: ELECTRONICALLY SIGNED BY: Arnol Delarosa MD Abnormal Not Available US PELVISon 03-01-2024 US PELVIS EXAM: Pelvic Ultrasound, Transabdominal. REASON FOR EXAM: Enlarged uterus, fibroids seen on CT, heavy period for years. COMPARISON: CT abdomen and pelvis January 12, 2024. TECHNIQUE: Longitudinal and transverse grayscale, color Doppler images of the pelvis obtained transabdominally. Endovaginal exam not performed. FINDINGS: The bladder shows normal shape size and contour. Ureteral jets not visualized. The uterus is enlarged and bulbous. Normal in position. The endometrium is not definitely thickened but poorly visualized. No significant pelvic free fluid. Neither ovary is visualized due to bowel. Multiple isoechoic masses present within the uterus, subserosal and myometrial. The largest is likely submucosal. Dirty posterior shadowing. #1. 5.3 x 4.18 x 4.09 cm #2. 5.81 x 4.67 x 5.02 cm #3. 5.29 x 5.5 x 4.55 cm #4. 4.89 x 4.93 x 2.94 cm Measurements: Uterus: 17.23 x 12.11 x 9.11 cm EM: 0.85 cm Right Ovary: Not visualized Left Ovary: Not visualized IMPRESSION: 1. Enlarged uterus with multiple subserosal and myometrial intrauterine fibroids. Some distort the endometrium possibly submucosal as well. 2. Ovaries not visualized due to bowel gas. *This report is generated using voice recognition reporting (KeepIdeas). On occasion [employer] erroneously drops words from the report or replaces the spoken word with similar sounding words. Please call with any questions/concerns regarding this report.* Dictated and transcribed 03/02/24/jazz This report has been electronically signed and approved by the interpreting radiologist. Electronically Signed Alfredo yHman II, M.D. 2024-03-02 17:14:13 Normal Not Available Cytology Cervical or vaginal smear or scraping studyOrdered By: Patsy Gomes on 02-22-2024 [facility] Ambulatory Visit Summaryon 0 01-19-2024 Ambulatory Visit Summary Ambulatory Visit Summary MARIANNE BATISTA :1975 Visit Date:01/19/2024 Ambulatory Visit Instructions Your Care Team Attending Physician - YANETH WHITNEY, Dimas Beltran Primary Care Physician - TREVOR WHITNEY, OFELIA Gordillo Procedures Performed Laparoscopic appendectomy (01/12/2024), Excision of cyst. Allergies No Known Allergies No Known Medication Allergies Problems Ongoing - Any problem that you are currently receiving treatment for. Anxiety Psoriasis of scalp Patient Survey You may receive a survey via text or e-mail asking about your office visit. Please share your experience with us by completing your survey. We appreciate your feedback and thank you for choosing us for your care. Normal [facility] General Surgery Office/Clini c Noteon 01-19-2024 General Surgery Office/Clinic Note General Surgery Office/Clinic Note Chief Complaint post operative follow up HPI Staff 7 day post operative follow up post lap appendectomy completed while in-patient at [facility]. Denies pain or discomfort, no use of pain medication. Denies bleeding or drainage. Bowels moving well. Completed entire course of ATB. History of Present Illness 1 week s/p LS appendectomy for acute appendicitis; pathology consistent with acute appendicitis with microperforation; patient doing well, denies pain, no fevers, no N/V; normal bms, voiding well; no drainage from incisions; no strenuous activities. Review of Systems PHQ Score Initial Depression Screen Score: 0 SCORE ROS - Provider Constitutional: no fever, no sweats, no weight loss. Eyes: no glasses, no blurred vision, no visual loss. ENMT: no dentures, no hoarseness, no swallowing difficulties, no hearing loss, no ear infection(s), no nose bleeds. Cardiovascular: normal blood pressure, no chest pain, regular heartbeat, no heart murmur. Respiratory: no shortness of breath, no cough, no asthma, no wheezing. Gastrointestinal: no nausea, no vomiting, no diarrhea, no constipation, no blood in stool, no change in bowel habits, no abdominal pain, no hepatitis. Genitourinary: no kidney stones, no urine infection, no dysuria. Musculoskeletal: no pain, no weakness. Skin: no changing moles, no rash, no skin lumps. Neurologic: no seizures, no epilepsy, no headache. Psychiatric: no emotional or psychiatric problem. Heme/Lymph: no bleeding problems, no anemia, no blood clots, no transfusions. Allergy/Immunologic: no swollen lymph nodes/glands, no IV drug abuse. Other: Additional ROS info: Except as noted in the above Review of Systems and in the History of Present Illness, all other systems have been reviewed and are negative or noncontributory. Physical Exam abd: soft, normal bs, nontender, nondistended; incisions without erythema or drainage; minimal resolving ecchymoses Assessment/Plan 1. Acute appendicitis with localized peritonitis without abscess (K35.30: Acute appendicitis with localized peritonitis, without perforation or gangrene) patient doing well; continue no lifting > 10 lbs for 3 weeks; call with problems/questions; watch for increased pain, N/V or fevers; patient to f/u with her WATER MAIN INSTALLER HELPER regarding fibroids noted on ct scan and at time of surgery. Follow-up No qualifying data available Problem List/Past Medical History Ongoing Acute appendicitis with localized peritonitis without abscess Anxiety Psoriasis of scalp Historical No qualifying data Procedure/Surgical History Laparoscopic appendectomy (01/12/2024), Excision of cyst. Medications No active medications Allergies No Known Allergies No Known Medication Allergies Social History Alcohol - Denies Alcohol Use, 01/19/2024 Substance Abuse - Denies Substance Abuse, 01/19/2024 Tobacco Former smoker, quit more than 30 days ago Tobacco Use:. Never Smokeless Tobacco Use:. Cigarettes, 1 per day. Started age 15.0 Years. Stopped age 38 Years., 01/19/2024 Family History Hypertension: Father. Parkinson disease: Father. Renal failure syndrome: Mother. Stroke: Mother. Normal [facility] Comment on above: Result Comment: Elec tronically Signed By: YANETH WHITNEY, Dimas Aquino.br\Date and Time Signed: 01/19/24 15:25 EDT Mp 01-12-2024 L Specimen: [id number] Received: 01/13/24 Status: MICHAEL Tarango Num: [id number] Spec Type: Surgical Subm Dr: Dimas Vivas MD FACS Tissues: A Appendix - Other than Incidental (APPENDIX) Procedures: HE/2, Gross/Micro L3 Age/ Patient Sex Location Account Attending Physician Marianne Batista 48/F [facility] [id number] Dimas Vivas MD FACS SPEC NUM: [id number] RECD: 01/13/24 STATUS: MICHAEL REMathew NUM: [id number] COOPER: 01/12/[address]: Dimas Vivas MD FACS ENTERED: 01/13/[address] [facility] [address]: Karissa,Lab SPEC TYPE: Surgical DEPT: NAY FRITZ ORDERED: HE/2, Gross/Micro L3 ORDERED: HE/2, Gross/Micro L3 Pathological Diagnosis Appendix, appendectomy: -Severe acute suppurative and hemorrhagic appendicitis with focal rupture and patchy severe acute serositis -Also apparently nonviable proximal margin, still with marked acute inflammation Clinical Information Acute appendicitis Gross Description Received in formalin labeled with the patient's name, date of and appendix is a 5.6 cm in length by 0.8 to 1.1 cm in diameter vermiform appendix with attached mesoappendix and covered by dusky seay serosa with exudate material covering the distal tip. The proximal margin contains a staple line which is removed and the adjacent tissue is inked blue and shaved. Cut sections reveal an area of perforation within the distal tip coming to within 4.6 cm of the proximal margin. The remaining lumen is lined by partially hemorrhagic, seay mucosa and contains semisolid, seay fecal material. No discrete masses or polyps are present. The appendiceal wall measures 0.1 cm. Station Cashier sections are submitted in A1 (base and midportion) and A2 (entire distal tip to include perforated area). TW Specimen: [id number] Received: 01/13/24 Status: MICHAEL Tarango Num: [id number] Spec Type: Surgical Subm Dr: Dimas Vivas MD FACS Tissues: A Appendix - Other than Incidental (APPENDIX) Procedures: HE/2, Gross/Micro L3 Patient: SusannaMarianne [id number] (Continued) Specimen: [id number] Received: 01/13/24 (Continued) Signed (signature on file) Princess Carlos MD 01/15/24 1434 Specimen: [id number] Received: 01/13/24 Status: MICHAEL Tarango Num: [id number] Spec Type: Surgical Subm Dr: Dimas Vivas MD FACS Tissues: A Appendix - Other than Incidental (APPENDIX) Procedures: MIGEL/Faviola Gross/Micro L3 Patient: Marianne Batista [id number] (Continued) Specimen: [id number] Received: 01/13/24 (Continued) CPT Codes 03102 Specimen: [id number] Received: 01/13/24 Status: MICHAEL Tarango Num: [id number] Spec Type: Surgical Subm Dr: Dimas Vivas MD FACS Tissues: A Appendix - Other than Incidental (APPENDIX) Procedures: MIGEL/Faviola, Gross/Micro L3 Patient: Marianne Batista [id number] (Continued) Signed (signature on file) Rito-Julian Carlos MD 01/15/24 1434 Normal [facility] XR WRIST 3+ VIEWS LEFTon XR WRIST 3+ VIEWS LEFT EXAM: XR WRIST 3+ VIEWS LEFT HISTORY: Wrist pain COMPARISON: None available TECHNIQUE: 4 views of the wrist obtained. FINDINGS: No acute fracture or dislocation. Carpal and radiocarpal alignment is satisfactory. Soft tissues are within normal limits. IMPRESSION: No acute osseous abnormality. ELECTRONICALLY SIGNED BY: Remy Molina DO Normal Not Available XR Wrist - left 3 Viewson No acute osseous abnormality. ELECTRONICALLY SIGNED BY: Remy Molina DO IMAGING EXAM: XR WRIST 3+ VIEWS LEFT HISTORY: Wrist pain COMPARISON: None available TECHNIQUE: 4 views of the wrist obtained. FINDINGS: No acute fracture or dislocation. Carpal and radiocarpal alignment is satisfactory. Soft tissues are within normal limits. IMAGING Remy Molina DO - 08/31/2023 EXAM: XR WRIST 3+ VIEWS LEFT HISTORY: Wrist pain COMPARISON: None available TECHNIQUE: 4 views of the wrist obtained. FINDINGS: No acute fracture or dislocation. Carpal and radiocarpal alignment is satisfactory. Soft tissues are within normal limits. IMPRESSION: No acute osseous abnormality. ELECTRONICALLY SIGNED BY: Remy Molina DO [facility] [employer] Radiology Study observation (narrative) [facility] streamit XR Wrist - left 3 ViewsOrder ed By: Remy Molina on 08-31-2023 [employer] Work Phone: COVID-19 PCRon 06-07-2020 SARS-CoV-2, LAMAR Not Detected Normal Not Detected [facility] Comment on above: Result Comment: This nucleic acid amplification test was developed and its performance characteristics determined by [employer]. Nucleic acid amplification tests include PCR and TMA. This test has not been FDA cleared or approved. This test has been authorized by FDA under an Emergency Use Authorization (EUA). This test is only authorized for the duration of time the declaration that circumstances exist justifying the authorization of the emergency use of in vitro diagnostic tests for detection of SARS-CoV-2 virus and/or diagnosis of COVID-19 infection under section 564(b)(1) of the Act, 21 U.S.C. 360bbb-3(b) (1), unless the authorization is terminated or revoked sooner. When diagnostic testing is negative, the possibility of a false negative result should be considered in the context of a patient's recent exposures and the presence of clinical signs and symptoms consistent with COVID-19. An individual without symptoms of COVID-19 and who is not shedding SARS-CoV-2 virus would expect to have a negative (not detected) result in this assay. Performed By: #### C VDPCR #### [facility] [address] [place], [place] [address]ken Edel Vital Signs Date Time Vital Sign Value Performing Clinician Jean Carlosi litmarbella 05-04-2024 09:30-0400 Body mass index (BMI) [Ratio] 29.88 kg/m2 [employer] Work Phone: [employer] 05-04-2024 09:30-0400 Body weight 86.55 kg [employer] Work Phone: [employer] 05-04-2024 09:30-0400 Diastolic blood pressure 80 mm[Hg] [employer] Work Phone: [facility] 05-04-2024 09:30-0400 Systolic blood pressure 130 mm[Hg] Tonia Aikeno DO Work Phone: [facility] 08-31-2023 15:27-0500 Body height 170.2 cm Ofelia Murray MD Work Phone: [facility] 08-31-2023 15:27-0500 Body mass index (BMI) [Ratio] 30.54 kg/m2 Ofelia Murray MD Work Phone: [facility] 08-31-2023 15:27-0500 Body weight 88.45 kg Ofelia Murray MD Work Phone: [facility] 08-31-2023 15:27-0500 Diastolic blood pressure 76 mm[Hg] Ofelia Murray MD Work Phone: [facility] 08-31-2023 15:27-0500 Heart rate 103 /min Ofelia Murray MD Work Phone: [facility] 08-31-2023 15:27-0500 SaO2% (BldA) [Mass fraction] 95 % Ofelia Murray MD Work Phone: [facility] 08-31-2023 15:27-0500 Systolic blood pressure 122 mm[Hg] Ofelia Murray MD Work Phone: [facility] Healthcare Encounters Encounter Date Encounter Type Care Provider Facility Start: 05-04-2024 End: 05-04-2024 ambulatory Tonia [facility] Work Phone: Start: 05-04-2024 End: 05-04-2024 Departed Referred DO Tonia Valencia Work Phone: [facility] Path [facility] [place] [facility] Start: 05-04-2024 End: 05-04-2024 Patient encounter procedure Tonia Aikeno DO Work Phone: [facility] Comment on above: Pre-op examination; Enlarged uterus; Menorrhagia with regular cycle; Pelvic pain in female; Dyspareunia in female; Dysmenorrhea Start: 05-04-2024 End: 05-04-2024 Preprocedural examination done Tonia Aikeno DO Work Phone: [facility] Start: 05-04-2024 End: 05-04-2024 ambulatory TONIA VALENCIA Not Available Start: 04-03-2024 End: 04-03-2024 ambulatory TONIA VALENCIA Not Available Start: 03-14-2024 End: 03-14-2024 ambulatory HUE L FLORO Not Available Start: 03-01-2024 End: 03-01-2024 ambulatory HUE L FLORO Not Available Start: 02-21-2024 End: 02-21-2024 ambulatory HUE L FLORO Not Available Start: 01-19-2024 End: 01-19-2024 ambulatory Dimas VIVAS Facility:[facility] Start: 01-19-2024 End: 01-19-2024 Patient encounter procedure Dimas VIVAS [facility] [place] Start: 01-13-2024 ambulatory Dimas VIVAS Facility:[facility] Start: 01-12-2024 End: 01-12-2024 ambulatory Dimas Vivas [facility] Work Phone: Start: 01-12-2024 End: 01-12-2024 Departed Referred MD Dimas Vivas Work Phone: [facility] Start: 01-12-2024 End: 01-12-2024 ambulatory Dimas VIVAS Facility:CD:[id number] Start: 10-06-2023 End: 10-06-2023 ambulatory GALINA Schaefer APLING Not Available Start: 09-17-2023 End: 09-17-2023 ambulatory JEANCARLOS DEL VALLE Not Available Start: 09-14-2023 End: 09-14-2023 ambulatory JEANCARLOS DEL VALLE Not Available Start: 09-10-2023 End: 09-10-2023 ambulatory JEANCARLOS DEL VALLE Not Available Start: 09-07-2023 End: 09-07-2023 ambulatory SAMANTHA CAMARA Not Available Start: 09-06-2023 End: 09-06-2023 ambulatory GALINA RICHEY Not Available Start: 08-31-2023 End: 08-31-2023 Office outpatient visit 15 minutes Ofelia Murray MD Work Phone: [facility] Comment on above: Left wrist pain (Adeola wolf Dx) Start: 08-31-2023 End: 08-31-2023 ambulatory OFELIA MURRAY Not Available Start: 08-31-2023 Bamboo flowsheet Ofelia hauser MD Work Phone: [facility] Start: 08-31-2023 Bamboo flowsheet Ofelia hauser MD Work Phone: [facility] Start: 06-04-2020 End: 06-05-2020 Patient encounter procedure OFELIA MURRAY Facility: Procedures Date Procedure Procedure Detail Performing Clinician Start: 05-04-2024 Urine test visual color cmprsn meths Tonia Valencia DO Work Phone: Start: 03-14-2024 Mammography Tonia [employer] o DO Work Phone: Start: 02-22-2024 Microscopic observat ion [Identifier] in Cervix by Cyto stain Tonia Valencia DO Work Phone: Start: 02-22-2024 Cytp cerv/vag auto t hin layer prep mnl screen Hue Garry Fisher CNM Work Phone: Start: 01-12-2024 Laparoscopic appendectomy Dimas VIVAS Excision of cyst Dimas Castañeda Comment on above: neck Plan of Treatment Date Care Activity Detail Author Start: 02-21-2029 Screening for malign ant neoplasm of cervix [facility] Start: 03-14-2025 Screening for malign ant neoplasm of breast Mammogram [facility] Start: 09-11-2024 End: 09-11-2024 Patient encounter procedure 09/11/2024 8:30 AM EST Office Visit [facility] [address] [place] [phone] Samantha Camara PA [address] [place] [address] [facility] Start: 05-31-2024 End: 05-31-2024 Patient encounter procedure 05/31/2024 11:20 AM EST Office Visit [facility] [address] [facility] [place] [phone] Laura Gonzalez PA [address] [place] [address] [facility] Start: 05-04-2024 [facility] Start: 03-19-2024 Influenza vaccination Influenz a Vaccine (#1) [facility] Start: 01-16-2024 Influenza vaccination Influenz a Vaccine (#1) [facility] Comment on above: Postponed from 03/19 (Patient Refused) Start: 09-07-2023 End: 09-07-2023 Patient encounter procedure 09/07/2023 8:40 AM EST Office Visit [facility] [address] [place] [phone] Samantha Camara PA [address] [place] [address] [facility] Start: 08-31-2023 End: 08-31-2023 Patient encounter procedure 08/31/2023 3:30 PM EST Office Visit [facility] [address] [place] [phone] Ofelia Murray MD [address] [place], [place] [id number] Arrived [facility] Comment on above: Arrived Start: 03-19-2023 Influenza vaccination Influenz a Vaccine (#1) [facility] Start: 2017 Screening for malign ant neoplasm of breast Mammogram [facility] Start: 2007 Screening for malign ant neoplasm of cervix [facility] Start: 1998 Screening for malign ant neoplasm of cervix Pap Smear [facility] Start: 1977 Screening for malign ant neoplasm of colon [facility] Tissue exam Tissue exam Path ology and Cytology Routine Enlarged uterus Ordered: 05/04/2024 [facility] Work Phone: Comment on above: Ordered: 05/04/2024 Immunizations Immunization Date Immunization Notes Care Provider Mamie garcía 02-28-2022 influenza virus vacc ine, unspecified formulation Ofelia Murray MD Work Phone: [facility] Payers Date Payer Category Payer Self-pay 2019 Private Health Insurance [id number] 2013 Unknown 1977 Unknown [id number] 1977 Unknown [id number] 2.840.1.632779.3.579.2. 1977 Unknown [id number] 2.16.840.1.225298.3.579.2. 1977 Unknown [id number] 2.16.840.1.654348.3.579.2. 1977 Unknown [id number] 2.16.840.1.070290.3.579.2.1258 1977 Unknown [id number] 2.16.840.1.977589.3.579.2.1258 1977 Unknown [id number] 2.16.840.1.433316.3.579.2.1258 1977 Unknown [id number] 2.16.840.1.103223.3.579.2.1258 1977 Unknown [id number] 2.16.840.1.698436.3.579.2.1258 1977 Unknown [id number] 2.16.840.1.221056.3.579.2.1258 1977 Unknown [id number] 2.16.840.1.758082.3.579.2.1258 1977 Unknown [id number] 2.16.840.1.935160.3.579.2.1258 1977 Unknown [id number] 2.16.840.1.304295.3.579.2.1258 1977 Unknown [id number] 2.16.840.1.549536.3.579.2.1258 1977 Unknown [id number] 2.16.840.1.609978.3.579.2.1258 1977 Unknown [id number] 2.16.840.1.510400.3.579.2.1258 1977 Unknown [id number] 2.16.840.1.609221.3.579.2.1258 1977 Unknown [id number] 2.16.840.1.631794.3.579.2.1258 1977 Unknown [id number] 2.16.840.1.209189.3.579.2.1258 1977 Unknown [id number] 2.16.840.1.167860.3.579.2.9 1959 Unknown [id number] Unknown [employer] [id number] Social History Date Type Detail Facility Tobacco smoking stat [facility] Tobacco smoking consumption unknown [facility] Start: 08-30-2023 End: 02-21-2024 History of Social function [facility] Start: 08-30-2023 End: 02-21-2024 Humiliation, Afraid, Rape, and Kick questionnaire [HARK] [facility] Within the last year , have you been afraid of your partner or ex-partner? No [facility] Are you now , , , , never or living with a partner? [facility] How often to you hav e a drink containing alcohol? 2-3 time sa week [facility] How many standard dr inks containing alcohol do you have on a typical day? 1 or 2 [facility] How often do you hav e 6 or more drinks on 1 occasion? Never [facility] How hard is it for y ou to pay for the very basics like food, housing, medical care, and heating Not hard at all [facility] Do you feel stress - tense, restless, nervous, or anxious, or unable to sleep at night because your mind is troubled all the time - these days [OSQ] Only a little [facility] (I/We) worried wheth er (my/our) food would run out before (I/we) got money to buy more. Never true [facility] Start: 1975 Sex Assigned At Not on file [facility] Start: 09-30-2022 Gender identity Identifies as female gender (finding) [facility] Start: 08-31-2023 End: 02-21-2024 Tobacco smoking status OHIS Ex-smoker [facility] Start: 10-21-1991 End: 10-30-2013 History of tobacco use Current smoker [facility] Start: 10-21-1991 End: 10-30-2013 History of tobacco use Cigarette Smoker [facility] Start: 08-31-2023 End: 02-21-2024 Tobacco use and exposure Smokeless tobacco non-user [facility] Start: 08-31-2023 End: 05-04-2024 Alcohol intake Current drinker of alcohol (finding) [facility] Start: 1975 Sex Assigned At Female [facility] Functional Status Date Assessment Result Facility 01-19-2024 Functional Status N/A [facility] [place] History of Present illness Narrative 05-04-2024 Elaine Davis - 05/04/2024 9:30 AM EDT Note Date & Type Note Facility 05-04-2024 History of Presen t illness Narrative Reason for Appointment: Patient ID: Marianne Batista is a 49 y.o. female who presents for Endometrial biopsy and Pre-op Visit Patient presents today for Pre Op/Endometrial Biopsy appointment. Patient is scheduled to undergo Total Abdominal Hysterectomy, possible BSO, possible cystoscopy on 05/24/[address] Birmingham at [facility]. MEDICATIONS Current Outpatient Medications Medication Instructions fluocinonide (Lidex) 0.05 % external solution Apply to affected areas on the scalp once a day when flared hydrocortisone 2.5 % cream Apply to affected areas on the face bid when flared ketoconazole (NIZOral) 2 % shampoo Topical, 2 times weekly, Lather on the scalp and then rinse off a few minutes later. Use a couple times a week triamcinolone (Kenalog) 0.1 % ointment Topical, 2 times daily, Apply to affected areas on the ears bid when flared. 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 Resolved Ambulatory Problems Diagnosis Date Noted No Resolved Ambulatory Problems Past Medical History: Diagnosis Date Eczema 09/10 Enlarged uterus 2023 HISTORY PAST MEDICAL HISTORY SOCIAL HISTORY Past Medical History: Diagnosis Date Eczema 09/10 Enlarged uterus 2023 Social History Tobacco Use Smoking status: Former Current packs/day: 0.00 Average packs/day: 1 pack/day for 22.0 years (22.0 ttl pk-yrs) Types: Cigarettes Start date: 10/21/1991 Quit date: 10/30/2013 Years since quittin.5 Smokeless tobacco: Never Substance Use Topics Alcohol use: Yes Alcohol/week: 6.0 standard drinks of alcohol Types: 6 Glasses of wine per week Drug use: Never FAMILY HISTORY Family History Problem Relation Name Age of Onset Stroke Mother Kaitlyn layne Cancer Father Kirby shannon SURGICAL HISTORY Past Surgical History: Procedure Laterality Date APPENDECTOMY 01/12/2024 CYST REMOVAL 2014 left side neck REVIEW OF SYSTEMS Review of Systems: Review of Systems Constitutional: Negative. HENT: Negative. Eyes: Negative. Respiratory: Negative. Cardiovascular: Negative. Gastrointestinal: Negative. Genitourinary: Positive for dyspareunia and pelvic pain. Musculoskeletal: Negative. Skin: Negative. Neurological: Negative. All other systems reviewed and are negative. Hematological: Negative. Endocrine: Negative. Allergic/Immunologic: Negative. OBJECTIVE Objective: Physical Exam Constitutional: Appearance: Normal appearance. She is well-developed. Genitourinary: Vulva normal. Cardiovascular: Rate and Rhythm: Normal rate and regular rhythm. Pulmonary: Effort: Pulmonary effort is normal. Breath sounds: Normal breath sounds. Abdominal: General: Bowel sounds are normal. There is no distension. Palpations: Abdomen is soft. Tenderness: There is no abdominal tenderness. There is no guarding or rebound. Musculoskeletal: General: No swelling. Normal range of motion. Right lower leg: No edema. Left lower leg: No edema. Neurological: Mental Status: She is alert and oriented to person, place, and time. Skin: General: Skin is warm and dry. Psychiatric: Mood and Affect: Mood normal. Behavior: Behavior normal. Vitals and nursing note reviewed. Exam conducted with a senior linux un[employer] administrator present. Vitals: Estimated body mass index is 29.88 kg/m as calculated from the following: Height as of 04/03/24: 5' 7 . Weight as of this encounter: 190 lb 12.8 oz. BP: 130/80 Patient's last menstrual period was 04/29/2024. ASSESSMENT & PLAN ICD-10-CM 1. Pre-op examination Z01.818 2. Enlarged uterus N85.2 POCT , urine manually resulted Tissue exam 3. Menorrhagia with regular cycle N92.0 4. Pelvic pain in female R10.2 5. Dyspareunia in female N94.10 6. Dysmenorrhea N94.6 EMBX: Patient was placed in dorsal lithotomy position with feet in stirrups. A sterile speculum was placed into the vagina and the cervix was visualized. The cervix was grasped with a single tooth tenaculum. The endometrial pipette was placed through the cervix into the uterus, endometrial curettage was performed and sampling was obtained, endometrial curettings were placed in formalin, and single tooth tenaculum was removed. Excellent hemostasis was assured. All instruments were removed from vagina. Pre Op: Patient is doing well but has complaints of pelvic pain with ultrasound showing an enlarged uterus. I have discussed conservative management vs. surgical management with the patient in detail and patient desires surgical management at this time. Patient will undergo Total Abdominal Hysterectomy, possible BSO, possible cystoscopy on 05/24/2024. Surgical consents were signed, mmc was reviewed, and patient is to proceed to [facility]. Follow Up: Patient is to follow up at 1 & 6 weeks post operative to assess proper healing and recovery from procedure. Documented by Sole Cannon LPN on behalf of: Tonia Birmingham DO documented in this encounter [facility] History of Present illness Narrative 08-31-2023 Ofelia Murray MD - 08/31/2023 3:30 PM EST Note Date & Type Note Facility 08-31-2023 History of Presen t illness Narrative Marianne Batista is a 48 y.o. female presents with chief complaint of Wrist Pain HPI: HPI Patient presents today with left wrist pain, she states it started out about a year ago. She denies no injury to it. She has done a lot of work with it over the years. She does wear brace when it hurts the worst. She states it has been bothering her more recently. Can't pick things up because she drops them. SUBJECTIVE: MEDICATIONS: No current outpatient medications REVIEW OF SYMPTOMS: Review of Systems OBJECTIVE: Visit Vitals BP 122/76 Pulse 103 Ht 5' 7 Wt 195 lb SpO2 95% BMI 30.54 kg/m Smoking Status Former BSA 2.05 m Physical Exam Vitals and nursing note reviewed. Constitutional: Appearance: Normal appearance. Musculoskeletal: Left wrist: No swelling, deformity, effusion, lacerations, snuff box tenderness or crepitus. Normal range of motion. Normal pulse. Comments: Has some tenderness at the radial head after I messed with the hand and wrist. Strength is normal in fingers and thumb as well as grasp. No neuro signs. Neurological: Mental Status: She is alert. ASSESSMENT AND PLAN: Assessment/Plan Problem List Items Addressed This Visit None Visit Diagnoses Left wrist pain - Primary Relevant Orders Ambulatory referral to Orthopaedic Surgery XR wrist 3+ views left (Completed) Unclear diagnosis. Will ask ortho to evaluate. XR today. Consider EMG, but not convinced it is neurologic. documented in this encounter [facility] Evaluation + Plan note Note Date & Type Note Facility Evaluation + Plan note No data available for this section [facility] Evaluation note Note Date & Type Note Facility Evaluation note Diagnosis Left wrist pain- Primary Pain in joint, forearm Left wrist pain Pain in joint, forearm documented in this encounter [facility] Evaluation note Note Date & Type Note Facility Evaluation note No assessment information availa [facility] Work Phone: Evaluation note Note Date & Type Note Facility Evaluation note Diagnosis Pre-op examination Enlarged uterus Hypertrophy of uterus Menorrhagia with regular cycle Pelvic pain in female Unspecified symptom associated with female genital organs Dyspareunia in female Dysmenorrhea documented in this encounter [facility] Hospital Discharge instructions Note Date & Type Note Facility Hospital Discharge instructions No data available for this section [facility] Progress note Note Date & Type Note Facility Progress note No data available for this section [facility] Reason for referral (narrative) Consultation (Routine) - Pending Review Note Date & Type Note Facility Reason for referral (narrati ve) Specialty Diagnoses / Procedures Referred By Althea palomo Referred To Contact Orthopaedic Surgery Diagnoses Left wrist pain Ofelia Murray MD [address] [place] [address] Roque Saeed, DO [address] [address] Referral ID Status Reason Start Date Expiration Date Visits Requested Visits Authorized [id number] Pending Review Specialty Services Required 08/31/2023 02/27/2024 1 1 [facility] Healthcare Summary Purpose Family History No Family History Records Found No data available for this section No Family History Records FoundNo Family History Records FoundNo Family History Records Found Advance Directives No Advanced Directives Records FoundNo Advanced Directives Records FoundNo Advanced Directives Records FoundNo Advanced Directives Records Found Additional Source Comments INFORMATION SOURCE (unrecogn ized section and content) DATE CREATED AUTHOR 06/08/2020 [facility] DATE CREATED AUTHOR AUTHOR'S ORGANIZ ATION 01/21/2024 [facility] DATE CREATED AUTHOR AUTHOR'S ORGANIZ ATION 05/06/2024 [facility] DATE CREATED AUTHOR AUTHOR'S ORGANIZ ATION 05/12/2024 [facility] Care Teams (unrecognized sec tion and content) Lean Specialist Relationship Specialty Start Date End Date Ofelia Murray MD [address] [place] [address] PCP - General Family Medicine 11/24/22 Lean Specialist Relationship Specialty Start Date End Date Ofelia Murray MD [address] [place] [address] PCP - General Family Medicine 11/24/22 Team Status: Inactive Member Role Status Dates Dimas Vivas MD FACS Attending Provider Active Start: January 12, 2024 End: January 12, 2024 Lean Specialist Relationship Specialty Start Date End Date Ofelia Murray MD [address] [place], [place] [phone] PCP - General Family Medicine 11/24/22 Team Status: Inactive Member Role Status Dates Tonia Birmingham DO Attending Provider Active Start : May 04, 2024 End: May 04, 2024 Reason for Visit (unrecogniz ed section and content) Reason Comments Wrist Pain Reason Comments Endometrial biopsy Pre-op Visit Goals (unrecognized section and content) Goals may be documented in a n alternate section No data available for this sectionGoals may be documented in an alternate section FOR RECORDS PERTAINING TO PATIENTS WHO ARE OR HAVE BEEN ENROLLED IN A CHEMICAL DEPENDENCY/SUBSTANCEABUSE PROGRAM, SOME INFORMATION MAY BE OMITTED. This clinical summary was aggregated from multiple sources. Caution should be exercised in using it in the provision of clinical care. This summary normalizes information from multiple sources, and as a consequence, information in this document may materially change the coding, format and clinical context of patient data. In addition, data may be omitted in some cases. CLINICAL DECISIONS SHOULD BE BASED ON THE PRIMARY CLINICAL RECORDS. [facility]. provides no warranty or guarantee of the accuracy or completeness of information in this document.
--- NOTE | 2024-05-15 13:40 | ECG_ITS ---
The Test Date: 2024-05-15 Pat Name: MARIANNE BATISTA Department: Room: - Gender: Female Ct Scan Technologist: : 1975 Requested By: TONIA KLINE Order Number: [id number] Reading MD: SOLITARIO BARKLEY Measurements Intervals Malin Rate: 89 P: 35 GA: 162 QRS: 21 QRSD: 93 T: 29 QT: 367 QTc: 449 Interpretive Statements SINUS RHYTHM Baseline artifact No previous ECG available for comparison Electronically Signed On 05-15-2024 20:19:20 EDT by SOLITARIO BARKLEY
[2024-05-15 14:29] LABS: Basophils Percent Auto 0.6 % (0.2-2.0); Eosinophils Absolute Auto 0.1 10^3/uL (0.0-0.7); Hematocrit 36.2 % (36.0-48.0); Hemoglobin 10.9 g/dL (12.0-16.0); Immature Granulocytes Abs Auto 0.02 10^3/uL (0.00-0.03); Immature Granulocytes Pct Auto 0.3 % (0.0-0.5); Lymphocytes Absolute Auto 1.1 10^3/uL (1.2-3.8); Lymphocytes Percent Auto 17.5 % (20.5-60.0); Mean Corpuscular HGB Conc 30.1 g/dL (29.9-35.2); Mean Corpuscular Hemoglobin 21.8 pg (26.7-34.0); Mean Corpuscular Volume 72.4 fL (81.0-99.0); Mean Platelet Volume 8.5 fL (9.5-13.5); Monocytes Absolute Auto 0.6 10^3/uL (0.3-0.8); Monocytes Percent Auto 8.9 % (1.7-12.0); Neutrophils Absolute Auto 4.5 10^3/uL (1.4-6.5); Neutrophils Percent Auto 71.7 % (43.0-75.0); Platelet Count 399 10^3/uL (150-450); Red Cell Distribution Width 17.6 % (11.0-15.0); White Blood Count 6.3 10^3/uL (4.0-11.0)
[2024-05-15 14:47] LABS: INR 0.97; Partial Thromboplastin Time 28.5 sec (22.3-36.2); Prothrombin Time 10.3 sec (9.0-11.6)
[2024-05-15 14:48] LABS: Alanine Aminotransferase 46 U/L (14-59); Albumin Globulin Ratio 0.8; Albumin Level 3.6 g/dL (3.4-5.0); Alkaline Phosphatase 99 U/L (46-116); Anion Gap 16.3; Aspartate Amino Transferase 29 U/L (15-37); BUN Creatinine Ratio 6.1; Bilirubin Direct 0.1 mg/dL (0.0-0.2); Bilirubin Total 0.5 mg/dL (0.2-1.0); Calcium 8.9 mg/dL (8.5-10.1); Carbon Dioxide 25.1 mmol/L (21.0-32.0); Chloride 100 mmol/L (98-107); Estimated GFR (African America >60 (>=60 mL/min/1.73m^2); Estimated GFR (Non-African Ame >60 (>=60 mL/min/1.73m^2); Globulin 4.8 g/dL; Glucose 109 mg/dL (74-106); Potassium 3.4 mmol/L (3.5-5.1); Sodium 138 mmol/L (136-145); Total Protein 8.4 g/dL (6.4-8.2)
== END 2024-05-15 13:26 | disposition home or self-care (01) ==
LOC: PST 13:26
PROVIDERS: PCP Family Medicine; Visit Provider Obstetrics & Gynecology
DX: Z01.810 Encounter for preprocedural cardiovascular examination (principal); Z01.812 Encounter for preprocedural laboratory examination; N85.2 Hypertrophy of uterus; N92.0 Excessive and frequent menstruation with regular cycle; R10.2 Pelvic and perineal pain
CPT/HCPCS: 36415; 80048; 80076; 85025; 85610; 85730; 86850; 86900; 86901; 93005

== ENCOUNTER 2024-05-24 11:02 | Inpatient (IN) | payer OTHER, SELFPAY ==
[2024-05-15 14:09] VITALS: BP 137/87; PULSE 97; TEMP 36.3; O2SAT 99; BMI 29.4
[2024-05-24] VITALS (17 sets, daily range): BP systolic 108–147; BP diastolic 64–102; PULSE 70–97; TEMP 36.1–36.9; O2SAT 90–99; BMI 29.5
--- OUTSIDE RECORDS SUMMARY | 2024-05-24 06:23 | XMS_ITS | CCD ---
Author Organization [facility] Care Team Providers Care Licensed Occupational Therapist Name Role Phone OFELIA MURRAY Primary Care Unavailable JEREMIAH RUGGIERO Attending JEREMIAH Villarreal Consulting JEREMIAH Villarreal Admitting Unavailable Ofelia Murray MD Primary Care Provider MD Dimas Vivas Attending Provider [phone] OFELIA MURRAY Primary Care Physician Dimas VIVAS Attending Unavailable Dimas VIVAS Attending Unavailable OFELIA MURRAY Attending Unavailable OFELIA MURRAY Referring Unavailable APLING, GALINA Schaefer Attending Unavailable JEANCARLOS DEL VALLE Attending Unavailable APLING, GALINA Schaefer Referring Unavailable HOASAMANTHA Attending Unavailable JEANCARLOS DEL VALLE Attending Unavailable APLING, GALINA Schaefer Referring Unavailable JEANCARLOS DEL VALLE Attending Unavailable APLING, GALINA Schaefer Referring Unavailable JEANCARLOS DEL VALLE Attending Unavailable APLING, GALINA Schaefer Referring Unavailable APLING, GALINA Schaefer Attending Unavailable HUE FISHER Attending Unavailable HUE FISHER Referring Unavailable HUE FISHER Referring Unavailable TONIA BIRMINGHAM Attending Unavailable HUE FISHER Referring Unavailable TONIA BIRMINGHAM Attending Unavailable DO Tonia Birmingham Attending Provider Dimas Vivas Admitting Unavailable Ortega, Dimas Beltran Attending Unavailable Tonia Birmingham Attending Unavailable Tonia Birmingham Admitting Unavailable Medications Current Medications Medication Drug Class(es) Dates Sig (Normalized) Sig (Original) fluocinonide 0.5 mg/ml topical solution (2 sources) Corticosteroid Start: 09-07-2023 fluocinonide (Lidex) 0.05 % external solution Indications: Psoriasis vulgaris (CMS/HCC) Apply to affected areas on the scalp once a day when flared 60 mL 11 09/07/2023 Active hydrocortisone 25 mg/ml topical cream (2 sources) Corticosteroid Start: 09-07-2023 hydrocortisone 2.5 % cream Indications: Psoriasis vulgaris (CMS/HCC) Apply to affected areas on the face bid when flared 28 g 11 09/07/2023 Active ketoconazole 20 mg/ml medicated shampoo (2 sources) Azole Antifungal Start: 09-09-2023 ketoconazole (NIZOral) 2 % shampoo Indications: Psoriasis vulgaris (CMS/HCC) Apply topically 2 (two) times a week Lather on the scalp and then rinse off a few minutes later. Use a couple times a week 120 mL 11 09/09/2023 Active triamcinolone acetonide 0.001 mg/mg topical ointment (2 sources) Corticosteroid Start: 09-07-2023 triamcinolone (Kenalog) 0.1 % ointment Indications: Psoriasis vulgaris (CMS/HCC) Apply topically 2 (two) times a day Apply to affected areas on the ears bid when flared. 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, unspecified] Onset: 08-31-2023 08-31-2023 Chronic Other lower respiratory disease (1 source) Cough; Translations: [COUGH] Onset: 06-08-2020 Episodic Other upper respiratory infections (1 source) Acute pharyngitis, unspecified; Translations: [ACUTE PHARYNGITIS UNSPECIFIED] Onset: 06-08-2020 Episodic Past or Other Problems Problem Classification Problem Date Documented Da te Episodic/Chronic Other non-traumatic joint disorders (4 sources) Pain of left wrist; Translations: [Pain in left wrist] Onset: 09-07-2023 08-31-2023 Episodic Other non-traumatic joint disorders (2 sources) Instability of joint of left wrist; Translations: [Other instability, left wrist] Onset: 09-07-2023 09-07-2023 Episodic Results Test Name Value Interpretation Reference Range Facil ity ALL CBC WITH AUTO DIFFon BASOPHILS ABSOLUTE AUTO 0 [facility] Basophils/100 WBC (Bld) 0.6 % 0.2 - 2.0 % [facility] Eosinophils/100 WBC (Bld) 1 % 0.9 - 7.0 % [facility] Erythrocyte distribution width (RBC) [Ratio] 17.6 % High 11.0 - 15.0 % [facility] Hematocrit (Bld) [Volume fraction] 36.2 % 36.0 - 48.0 % [facility] Hemoglobin (Bld) [Mass/Vol] 10.9 g/dL Low 12.0 - 16.0 g/dL [facility] IMMATURE GRANULOCYTES ABS AUTO 0.02 [facility] Immature granulocytes/100 WBC (Bld) 0.3 % 0.0 - 0.5 % [facility] Interpretation and review of laboratory results Abnormal [facility] LYMPHOCYTES ABSOLUTE AUTO 1.1 Low [facility] Lymphocytes/100 WBC (Bld) 17.5 % Low 20.5 - 60.0 % [facility] MCH (RBC) [Entitic mass] 21.8 pg Low 26.7 - 34.0 pg [facility] MCHC (RBC) [Mass/Vol] 30.1 g/dL 29.9 - 35.2 g/dL [facility] MCV (RBC) [Entitic vol] 72.4 fL Low 81.0 - 99.0 fL [facility] MONOCYTES ABSOLUTE AUTO 0.6 [facility] Monocytes/100 WBC (Bld) 8.9 % 1.7 - 12.0 % [facility] NEUTROPHILS ABSOLUTE AUTO 4.5 [facility] Neutrophils/100 WBC (Bld) 71.7 % 43.0 - 75.0 % [facility] Platelet mean volume (Bld) [Entitic vol] 8.5 fL Low 9.5 - 13.5 fL [facility] EO # 0.1 [facility] PLT 399 [facility] RBC 5 [facility] WBC 6.3 [facility] HCG ( test) Ql (U)o n 05-04-2024 Interpretation and review of laboratory results Normal [facility] Healthcare Preg Test, Ur Negative [facility] Pathology Request for Lab Co rpon 05-04-2024 Pathology Request for Lab Jason Normal [facility] Comment on above: Order Comment: PATHO LOGY PRODUCTION CONTROL PEGBOARD CLERK SPECIMEN Result Comment: See report. Scanned copy available in EMR. PERFORMED BY: [place] [address] PATHOLOGIST TRACK LINER OPERATOR ANNY MAYES M.D. Performed By: #### P ATH TO [facility] #### [address] BI MAMMOGRAM DIAGNOSTIC KILLIAN SYNTHESIS LEFTon [...] IS VERY IMPORTANT TO YOUR HEALTH. THE [employer] GUIDELINES RECOMMEND THAT WOMEN 40 [...] IS VERY IMPORTANT TO YOUR HEALTH. THE [employer] GUIDELINES RECOMMEND THAT WOMEN 40 [...] report is generated using voice recognition reporting (UniYu). On occasion [employer] erroneously drops words from the report or replaces the spoken word with similar sounding words. Please call with any questions/concerns regarding this report.* Dictated and transcribed 03/02/24/dpd This report has been electronically signed and approved by the interpreting radiologist. Electronically Signed Alfredo Hyman II, M.D. 2024-03-02 17:14:13 Normal Not Available Cytology Cervical or vaginal smear or scraping studyOrdered By: Patsy Gomes on 02-22-2024 [facility] Ambulatory Visit Summaryon 0 01-19-2024 Ambulatory Visit Summary Ambulatory Visit Summary MARIANNE BATISTA :1975 Visit Date:01/19/2024 Ambulatory Visit Instructions Your Care Team Attending Physician - ORTEGA WHITNEY, Dimas Beltran Primary Care Physician - [...] for choosing us for your care. Normal [place] General Surgery Office/Clini c Noteon 01-19-2024 General Surgery Office/Clinic Note General Surgery Office/Clinic Note Chief Complaint post operative follow up HPI Staff 7 day post operative follow up post lap appendectomy completed while in-patient at [facility]. 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 Stroke: Mother. Normal [place] Comment on above: Result Comment: Elec tronically Signed By: ORTEGA WHITNEY, Dimas Velazquez\Date and Time Signed: 01/19/24 15:25 EDT Mp 01-12-2024 L Specimen: [id number] Received: 06 Status: SOUT Req Num: [id number] Spec Type: Surgical Subm Dr: Dimas Vivas MD FACS Tissues: A Appendix - Other than Incidental (APPENDIX) Procedures: HE/2, Gross/Micro L3 Age/ Patient Sex Location Account Attending Physician Marianne Batista 48/F LABELL [id number] Dimas Vivas MD FACS SPEC NUM: [id number] RECD: 01/13/24 STATUS: MICHAEL TARANGO NUM: [id number] COOPER: 01/12/[address]: Dimas Vivas MD FACS ENTERED: 01/13/24 [facility] DR: Karissa,Lab SPEC TYPE: Surgical DEPT: NAY [...] present. The appendiceal wall measures 0.1 cm. Health Sciences Manager sections are submitted in A1 (base and midportion) and A2 (entire distal tip to include perforated area). TW Specimen: [id number] Received: 01/13/24 Status: MICHAEL Emelina Num: [id number] Spec Type: Surgical Subm Dr: Dimas Vivas MD FACS Tissues: A Appendix - Other than Incidental (APPENDIX) Procedures: MIGELFaviola Gross/Micro L3 Patient: Marianne Batista [id number] (Continued) Specimen: [id number] Received: 01/13/24 (Continued) Signed (signature on file) Princess Carlos MD 01/15/24 1434 Specimen: [id number] Received: 01/13/24 Status: ORLANDOTonny Tarango Num: [id number] Spec Type: Surgical Subm Dr: Dimas Vivas MD FACS Tissues: A Appendix - Other than Incidental (APPENDIX) Procedures: Faviola Gross/Micro L3 Patient: Marianne Batista [id number] (Continued) Specimen: [id number] Received: 01/13/24 (Continued) CPT Codes 16718 Specimen: [id number] Received: 01/13/24 Status: MICHAEL Tarango Num: [id number] Spec Type: Surgical Subm Dr: Dimas Vivas MD FACS Tissues: A Appendix - Other than Incidental (APPENDIX) Procedures: HE/2, Gross/Micro L3 Patient: Marianne Batista [id number] (Continued) Signed (signature on file) Princess Carlos MD 01/15/24 1434 Normal [facility] XR WRIST 3+ VIEWS LEFTon [...] abnormality. ELECTRONICALLY SIGNED BY: Remy Molina DO [facility] Radiology Study observation (narrative) [facility] XR Wrist - left 3 ViewsOrder ed By: Remy Molina on 08-31-2023 [facility] [employer] Work Phone: COVID-19 PCRon 06-07-2020 SARS-CoV-2, LAMAR Not Detected Normal Not Detected [facility] Comment on above: Result Comment: This nucleic acid amplification test was developed and its performance characteristics determined by [employer]. Nucleic acid amplification tests include PCR and [...] assay. Performed By: #### C VDPCR #### [facility] [address] [place] [address] [place] Vital Signs Date Time Vital Sign Value Performing Clinician Per delcid 05-04-2024 09:30-0400 Body mass index (BMI) [Ratio] 29.88 kg/m2 [employer] Work Phone: [facility] [employer] 05-04-2024 09:30-0400 Body weight 86.55 kg [employer] Work Phone: [facility] [employer] 05-04-2024 09:30-0400 Diastolic blood pressure 80 mm[Hg] [employer] Work Phone: [facility] 05-04-2024 09:30-0400 Systolic blood pressure 130 mm[Hg] [employer] Work Phone: [facility] 08-31-2023 15:27-0500 Body height 170.2 cm Ofelia Murray MD Work Phone: [facility] 08-31-2023 15:27-0500 Body mass index (BMI) [Ratio] 30.54 kg/m2 Ofelia Murray MD Work Phone: [facility] 08-31-2023 15:27-0500 Body weight 88.45 kg Oeflia Murray MD Work Phone: [facility] 08-31-2023 15:27-0500 Diastolic blood pressure 76 mm[Hg] Ofelia Murray MD Work Phone: [facility] 08-31-2023 15:27-0500 Heart rate 103 /min Ofelia Murray MD Work Phone: [facility] 08-31-2023 15:27-0500 SaO2% (BldA) [Mass fraction] 95 % Ofelia Murray MD Work Phone: [facility] 08-31-2023 15:27-0500 Systolic blood pressure 122 mm[Hg] Ofelia Murray MD Work Phone: [facility] Healthcare Encounters Encounter Date Encounter Type Care Provider Facility Start: 05-15-2024 End: 05-15-2024 [facility] Result Encounter Generic External Data Provider [facility] Unsolicited Start: 05-15-2024 End: 05-15-2024 [facility] Result Encounter Generic External Data Provider [facility] External Department Unsolicited Start: 05-04-2024 End: 05-04-2024 ambulatory [facility] Work Phone: Start: 05-04-2024 End: 05-04-2024 Departed Referred [facility] Work Phone: [facility] Path [facility] Start: 05-04-2024 End: 05-04-2024 Patient encounter procedure Tonia Molinao DO Work Phone: [facility] Comment on above: Pre-op examination; Enlarged uterus; Menorrhagia with regular cycle; Pelvic pain in female; Dyspareunia in female; Dysmenorrhea Start: 05-04-2024 End: 05-04-2024 Preprocedural examination done Tonia Birmingham DO Work Phone: [facility] Start: 05-04-2024 End: 05-04-2024 ambulatory TONIA MOLINAO Not Available Start: 04-03-2024 End: 04-03-2024 ambulatory TONIA VALENCIA Not Available Start: 03-14-2024 End: 03-14-2024 ambulatory HUE L FLORO Not Available Start: 03-01-2024 End: 03-01-2024 ambulatory HUE L FLORO Not Available Start: 02-21-2024 End: 02-21-2024 ambulatory HUE L FLORO Not Available Start: 01-19-2024 End: 01-19-2024 ambulatory Dimas VIVAS Facility:[facility] Start: 01-19-2024 End: 01-19-2024 Patient encounter procedure Dimas VIVAS [facility] Start: 01-13-2024 ambulatory Dimas VIVAS Facility:[facility] Start: 01-12-2024 End: 01-12-2024 ambulatory Dimas Vivas [facility] Work Phone: Start: 01-12-2024 End: 01-12-2024 Departed Referred MD Dimas Vivas Work Phone: [facility] Path [facility] Start: 01-12-2024 End: 01-12-2024 ambulatory Dimas VIVAS Facility:[id number] Start: 10-06-2023 End: 10-06-2023 ambulatory GALINA RICHEY Not Available Start: 09-17-2023 End: 09-17-2023 ambulatory [...] Comment on above: Left wrist pain (Adeola luciano Dx) Start: 08-31-2023 End: 08-31-2023 ambulatory OFELIA MURRAY Not Available Start: 08-31-2023 Bamboo flowsheet Ofelia hauser MD Work Phone: [facility] Start: 08-31-2023 Bamboo flowsheet Ofelia hauser MD Work Phone: [facility] Start: 06-04-2020 End: 06-05-2020 Patient encounter procedure OFELIA MURRAY Facility: Procedures Date Procedure Procedure Detail Performing Clinician Start: 05-15-2024 ALL CBC WITH AUTO DIFF Tonia Valencia DO Work Phone: Start: 05-04-2024 Urine test visual color cmprsn meths Tonia Valencia DO Work Phone: Start: 03-14-2024 Mammography Tonia Fazi o DO Work Phone: Start: 02-22-2024 Microscopic observat ion [Identifier] in Cervix by Cyto stain Tonia Valencia DO Work Phone: Start: 02-22-2024 Cytp cerv/vag auto t hin layer prep mnl screen Hue Fisher CNM Work Phone: Start: 01-12-2024 Laparoscopic appendectomy Dimas VIVAS Excision of cyst Dimas Castañeda Comment on above: neck Plan of Treatment Date Care Activity Detail Author Start: 02-21-2029 Screening for malign ant neoplasm of cervix [facility] Start: 03-14-2025 Screening for malign ant neoplasm of breast Mammogram [facility] Start: 09-11-2024 End: 09-11-2024 Patient encounter procedure 09/11/2024 8:30 AM EST Office Visit [facility] [address] [place] [id number] Samantha Camara, GALINA [address] [place] [address] [facility] Start: 05-31-2024 End: 05-31-2024 Patient encounter procedure 05/31/2024 11:20 AM EST Office Visit [facility] [address] [place] [id number] Laura Gonzalez PA [address] [place], [place] [id number] [facility] Start: 05-04-2024 [facility] Start: 03-19-2024 Influenza vaccination Influenz a Vaccine (#1) [facility] Start: 01-16-2024 Influenza vaccination Influenz a Vaccine (#1) [facility] Comment on above: Postponed from 03/19 (Patient Refused) Start: 09-07-2023 End: 09-07-2023 Patient encounter procedure 09/07/2023 8:40 AM EST Office Visit [facility] [address] [place] [phone] Samantha Camara PA [address] [place] [address] [facility] Start: 08-31-2023 End: 08-31-2023 Patient encounter procedure 08/31/2023 3:30 PM EST Office Visit [facility] [address] [facility] [place] [address] Ofelia Murray MD [address] [facility] [place] [address] Arrived [facility] Comment on above: Arrived Start: 03-19-2023 Influenza vaccination Influenz a Vaccine (#1) [facility] Start: 2017 Screening for malign ant neoplasm of breast Mammogram [facility] Start: 2007 Screening for malign ant neoplasm of cervix [facility] Start: 1998 Screening for malign ant neoplasm of cervix Pap Smear [facility] Start: 1977 Screening for malign ant neoplasm of colon [facility] Tissue exam Tissue exam Path ology and Cytology Routine Enlarged uterus Ordered: 05/04/2024 [facility] Work Phone: Comment on above: Ordered: 05/04/2024 Immunizations Immunization Date Immunization Notes Care Provider Fa [facility] 02-28-2022 influenza virus vacc ine, unspecified formulation Ofelia Murray MD Work Phone: [facility] Payers Date Payer Category Payer Self-pay 2019 Private Health Insurance [id number] 2013 Unknown 1977 Unknown [id number] 1977 Unknown [id number] 2.16.840.1.428741.3.579.2.727 1977 Unknown [id number] 2.16.840.1.655963.3.579.2.727 1977 Unknown [id number] 2.16.840.1.627428.3.579.2.727 1977 Unknown [id number] 2.16.840.1.650018.3.579.2.1259 1977 Unknown [id number] 2.16.840.1.880487.3.579.2.9 1977 Unknown [id number] 2.16.840.1.448090.3.579.2.9 1977 Unknown [id number] 2.16.840.1.461062.3.579.2.1259 1977 Unknown [id number] 2.16.840.1.827232.3.579.2.1258 1977 Unknown [id number] 2.16.840.1.863530.3.579.2.1258 1977 Unknown [id number] 2.16.840.1.849936.3.579.2.1258 1977 Unknown [id number] 2.16.840.1.714138.3.579.2.1258 1977 Unknown [id number] 2.16.840.1.205766.3.579.2.1258 1977 Unknown [id number] 2.16.840.1.589026.3.579.2.1258 1977 Unknown [id number] 2.16.840.1.785225.3.579.2.1258 1977 Unknown [id number] 2.16.840.1.434165.3.579.2.1258 1977 Unknown [id number] 2.16.840.1.188114.3.579.2.1258 1977 Unknown [id number] 2.16.840.1.437326.3.579.2.1258 1977 Unknown [id number] 2.16.840.1.244025.3.579.2.1258 1977 Unknown [id number] 2.16.840.1.722928.3.579.2.9 1959 Unknown [id number] Unknown [employer] [id number] Social History Date Type Detail Facility Tobacco smoking stat [facility] Tobacco smoking consumption unknown [facility] [...] Only a little [facility] (I/We) worried wheandrea er (my/our) food would run out before (I/we) got money to buy more. Never true [facility] Start: 1975 Sex Assigned At Not on file [facility] Start: 09-30-2022 Gender identity Identifies as female gender (finding) [facility] Start: 08-31-2023 End: 02-21-2024 Tobacco smoking status [facility] Ex-smoker [facility] Start: 10-21-1991 End: 10-30-2013 History of tobacco use Current smoker [facility] Start: 10-21-1991 End: 10-30-2013 History of tobacco use Cigarette Smoker [facility] Start: 08-31-2023 End: 02-21-2024 Tobacco use and exposure Smokeless tobacco non-user [facility] Start: 08-31-2023 End: 05-04-2024 Alcohol intake Current drinker of alcohol (finding) [facility] Start: 1975 Sex Assigned At Female [facility] Functional Status Date Assessment Result Facility 01-19-2024 Functional Status N/A [facility] History of Present illness Narrative 05-04-2024 Elaine [...] on 05/24/[address] Birmingham at [facility]. MEDICATIONS Current Outpatient Medications Medication Instructions [...] nursing note reviewed. Exam conducted with a oven attendant present. Vitals: Estimated body mass index is [...] reviewed, and patient is to proceed to [facility] OR. Follow Up: Patient is to follow [...] note No data available for this section [facility] Evaluation note Note Date & Type Note Facility Evaluation note Diagnosis Left wrist pain- Primary Pain in joint, forearm Left wrist pain Pain in joint, forearm documented in this encounter [facility] Evaluation note Note Date & Type Note Facility Evaluation note No assessment information availa [facility] Work Phone: Evaluation note Note Date & Type Note Facility Evaluation note Diagnosis Pre-op examination Enlarged uterus Hypertrophy of uterus Menorrhagia with regular cycle Pelvic pain in female Unspecified symptom associated with female genital organs Dyspareunia in female Dysmenorrhea documented in this encounter [facility] Hospital Discharge instructions Note Date & Type Note Facility Hospital Discharge instructions No data available for this section [facility] Progress note Note Date & Type Note Facility Progress note No data available for this section [facility] Reason for referral (narrative) Consultation (Routine) - Pending Review Note Date & Type Note Facility Reason for referral (narrati ve) Specialty Diagnoses / Procedures Referred By Althea palomo Referred To Contact Orthopaedic Surgery Diagnoses Left wrist pain Ofelia Murray MD [address] [place] [address] Roque Saeed, [address] [address] Referral ID Status Reason Start Date Expiration Date Visits Requested Visits Authorized [id number] Pending Review Specialty Services Required 08/31/2023 02/27/2024 1 1 [facility] Summary Purpose Family History No Family History Records Found No data available for this section No Family History Records FoundNo Family History Records FoundNo Family History Records Found Advance Directives No Advanced Directives Records FoundNo Advanced Directives Records FoundNo Advanced Directives Records FoundNo Advanced Directives Records Found Additional Source Comments INFORMATION SOURCE (unrecogn ized section and content) DATE CREATED AUTHOR 06/08/2020 [facility] pital DATE CREATED AUTHOR AUTHOR'S ORGANIZ ATION 01/21/2024 [facility] DATE CREATED AUTHOR AUTHOR'S ORGANIZ ATION 05/06/2024 [facility] Special[facility] DATE CREATED AUTHOR AUTHOR'S ORGANIZ ATION 05/19/2024 [facility] Care Teams (unrecognized sec tion and content) Licensed Occupational Therapist Relationship Specialty Start Date End Date Ofelia Murray MD [address] [facility] [place] [address] PCP - General Family Medicine 11/24/22 Licensed Occupational Therapist Relationship Specialty Start Date End Date Ofelia Murray MD [address] [facility] [place] [address] PCP - General Family Medicine 11/24/22 Team Status: Inactive Member Role Status Dates Dimas Vivas MD [facility] Attending Provider Active Start: January 12, 2024 End: January 12, 2024 Licensed Occupational Therapist Relationship Specialty Start Date End Date Ofleia Murray MD [address] [facility] [place] [address] PCP - General Family Medicine 11/24/22 Team Status: Inactive Member Role Status Dates Tonia Birmingham DO Attending Provider Active Start : May 04, 2024 End: May 04, 2024 Licensed Occupational Therapist Relationship Specialty Start Date End Date Ofelia Murray MD [address] [facility] [place] [address] PCP - General Family Medicine 11/24/22 Reason for Visit (unrecogniz ed section and [...] BE BASED ON THE PRIMARY CLINICAL RECORDS. [employer] [facility]. provides no warranty or guarantee of the accuracy or completeness of information in this document.
[2024-05-24 06:33] LABS: Basophils Percent Auto 0.6 % (0.2-2.0); Eosinophils Absolute Auto 0.2 10^3/uL (0.0-0.7); Eosinophils Percent Auto 2.8 % (0.9-7.0); Hematocrit 33.2 % (36.0-48.0); Hemoglobin 9.9 g/dL (12.0-16.0); Immature Granulocytes Abs Auto 0.03 10^3/uL (0.00-0.03); Immature Granulocytes Pct Auto 0.5 % (0.0-0.5); Lymphocytes Absolute Auto 1.9 10^3/uL (1.2-3.8); Lymphocytes Percent Auto 29.7 % (20.5-60.0); Mean Corpuscular HGB Conc 29.8 g/dL (29.9-35.2); Mean Corpuscular Hemoglobin 21.6 pg (26.7-34.0); Mean Corpuscular Volume 72.5 fL (81.0-99.0); Mean Platelet Volume 8.8 fL (9.5-13.5); Monocytes Absolute Auto 0.6 10^3/uL (0.3-0.8); Monocytes Percent Auto 8.7 % (1.7-12.0); Neutrophils Absolute Auto 3.8 10^3/uL (1.4-6.5); Neutrophils Percent Auto 57.7 % (43.0-75.0); Platelet Count 440 10^3/uL (150-450); Red Blood Count 4.58 10^6/uL (4.20-5.40); White Blood Count 6.5 10^3/uL (4.0-11.0)
[2024-05-24] MEDS: LACTATED RINGER'S SOLUTION 1,000 ML 50 ML IV ×2 (06:53→10:05)
[2024-05-24 06:56] LABS: HCG Quantitative <1 mIU/mL
[2024-05-24] MEDS: CEFAZOLIN SODIUM 2 GM/50 ML D5W PREMIX IV (07:36)
--- NOTE | 2024-05-24 09:55 | P.ON_ITS ---
Brief Operative Note Date of procedure: 05/24/24 Pre-op diagnosis general: uterine fiborids, enlarged uterus, dysmenorrhea, dys pareunia Post-op diagnosis: same as pre-op Procedure: NAME OF PROCEDURE: [ ]Total abdominal hysterectomy, bilateral salpingectomy with cystoscopy. PROCEDURE: Patient was taken back to the Operating Room where she was given general anesthesia without difficulty. She was then prepped and draped in the normal sterile fashion. A Pfannenstiel skin incision was then made 2 cm above the symphysis and pubis and carried down to underlying rectus fascia using a Bovie. The fascia was incised in the midline and extended bilaterally using Medina scissors. Two Amy clamps were placed on the superior aspect of the fascia and dissected off the underlying rectus muscle. The same was performed on the inferior aspect as well. The muscle was then in the midline. The peritoneum was identified and entered bluntly. Peritoneum was then extended superiorly and inferiorly with good visualization of the bladder. An O'Xnofmscy-R-Sqnqya retractor was placed into the patient's abdomen. The bowel was packed away with moist laparotomy sponges and the bladder blade was inserted. A Leahey tenaculum was placed on the patient's uterus and used for retraction. LigaSure apparatus was then used to come across the mesosalpingx from the fimbriated end to the uteroovarian ligament on the patient's right side which was then cauterized and transected. TThis wascarried down serially through the broad ligament and across the round ligament. The bladder flap was then created using the Metzenbaum scissors, and thebladder was easily dissected off the patient's lower uterine segment. A curved Lashanda was placed across the uterine artery on the right side which was clamped, transected, and suture ligated using #0 Monocryl. This was performed on the contralateral side as well. The bladder was further dissected and a Zeppelin clamp was then placed across the uterosacral and cardinal ligaments. This was transected and suture ligated using #0 Monocryl. This was performed on the contralateral side as well. The uterus was then amputated using Ayan scissors. The patient's cuff was closed using #0 PDS in a running locked fashion and this was transfixed to the ipsilateral uterosacral and cardinal ligaments. Excellent hemostasis was assured. The patient's abdomen wascopiously irrigated using warm saline. Cystoscopy was performed. Bladder was intact. Efflux was noted from both ostia. Cystoscope was removed.After excellent hemostasis was assured, all instruments were removed from the patient's abdomen. The patient's peritoneum was closed using 3-0 Vicryl in a running fashion. The patient's fascia was closed using #0 Vicryl in a running fashion. The patient's skin was closed using 4-0 vicryl on a luz maria needle. The patient tolerated the procedure well. Sponge, lap, and needle counts were correct times two. Patient taken to the Recovery Room in stable condition Anesthesia: KUMAR Surgeon: Steve Birmingham Wire Charger: Lisa Sellers Estimated blood loss (mL): 100 Pathology: other (uterus and tubes) Condition: stable Disposition: PACU Urinary Catheter Management Urinary Catheter Management Urethral: Cath placed during this visit: no
[2024-05-24] MEDS: BUPIVACAINE LIPOSOME/PF 266 MG/13.3 ML VIAL INJ (10:20)
--- OUTSIDE RECORDS SUMMARY | 2024-05-24 11:37 | XMS_ITS | CCD ---
Author Organization [facility] Care Team Providers Care Chimney Supervisor Brick Name Role Phone OFELIA MURRAY Primary Care Unavailable JEREMIAH RUGGIERO Attending JEREMIAH Villarreal Consulting JEREMIAH Villarreal Admitting Unavailable Ofelia Murray MD Primary Care Provider MD Dimas Vivas Attending Provider [phone] OFELIA MURRAY Primary Care Physician Dimas VIVAS [...] WITH AUTO DIFFon BASOPHILS ABSOLUTE AUTO 0 [facility] Basophils/100 WBC (Bld) 0.6 % 0.2 - 2.0 % [facility] Eosinophils/100 WBC (Bld) 1 % 0.9 - 7.0 % [facility] Erythrocyte distribution width (RBC) [Ratio] 17.6 % High 11.0 - 15.0 % [facility] Hematocrit (Bld) [Volume fraction] 36.2 % 36.0 - 48.0 % [facility] Hemoglobin (Bld) [Mass/Vol] 10.9 g/dL Low 12.0 - 16.0 g/dL [facility] IMMATURE GRANULOCYTES ABS AUTO 0.02 [facility] Immature granulocytes/100 WBC (Bld) 0.3 % 0.0 - 0.5 % [facility] Interpretation and review of laboratory results Abnormal [facility] LYMPHOCYTES ABSOLUTE AUTO 1.1 Low [facility] Lymphocytes/100 WBC (Bld) 17.5 % Low 20.5 - 60.0 % [facility] MCH (RBC) [Entitic mass] 21.8 pg Low 26.7 - 34.0 pg [facility] MCHC (RBC) [Mass/Vol] 30.1 g/dL [...] Interpretation and review of laboratory results Normal [facility] Healthcare Preg Test, Ur Negative [facility] Path[facility] Request for Lab Co rpon 05-04-2024 Pathology Request for Lab Jason Normal [facility] Comment on above: Order Comment: PATHO LOGY FISH SMOKER SPECIMEN Result Comment: See report. Scanned copy available in EMR. PERFORMED BY: [place] [address] PATHOLOGIST MANAGER CONTRACT ANNY MAYES M.D. Performed By: #### P ATH TO [facility] #### [address] BI MAMMOGRAM DIAGNOSTIC KILLIAN SYNTHESIS LEFTon [...] IS VERY IMPORTANT TO YOUR HEALTH. THE [employer] GUIDELINES RECOMMEND THAT WOMEN 40 [...] IS VERY IMPORTANT TO YOUR HEALTH. THE [employer] GUIDELINES RECOMMEND THAT WOMEN 40 [...] report is generated using voice recognition reporting ([employer] - [place]). On occasion [employer] erroneously drops words from the report or [...] studyOrdered By: Patsy Gomes on 02-22-2024 [facility] Ambulatory Visit Summaryon 0 01-19-2024 Ambulatory [...] for choosing us for your care. Normal [facility] General Surgery Office/Clini c Noteon 01-19-2024 General Surgery Office/Clinic Note General Surgery Office/Clinic Note Chief Complaint post operative follow up HPI Staff 7 day post operative follow up post lap appendectomy completed while in-patient at [facility]. Denies pain or discomfort, no use of [...] or fevers; patient to f/u with her FISH SMOKER regarding fibroids noted on ct scan and [...] Renal failure syndrome: Mother. Stroke: Mother. Normal [facility] Comment on above: Result Comment: Elec tronically Signed By: ORTEGA WHITNEY, Dimas Velazquez\Date and Time Signed: 01/19/24 15:25 EDT Mp 01-12-2024 L Specimen: [id number] Received: 06 Status: SOUT Req Num: [id number] Spec Type: Surgical Subm Dr: Dimas Vivas MD FACS Tissues: A Appendix - Other than Incidental (APPENDIX) Procedures: HE/2, Gross/Micro L3 Age/ Patient Sex Location Account Attending Physician Marianne Batista 48/F LABELL [id number] Dimas Vivas MD FACS SPEC NUM: [id number] RECD: 01/13/24 STATUS: MICHAEL TARANGO NUM: [id number] COOPER: 01/12/[address]: Dimas Vivas MD FACS ENTERED: 01/13/[address] [facility] [address]: Karissa,Lab SPEC TYPE: Surgical DEPT: [...] present. The appendiceal wall measures 0.1 cm. Cigarette Making Machine Operator sections are submitted in A1 (base and midportion) and A2 (entire distal tip to include perforated area). TW Specimen: [id number] Received: 01/13/24 Status: MICHAEL Emelina Num: [id number] Spec Type: Surgical Subm Dr: Dimas Vivas MD FACS Tissues: A Appendix - Other than Incidental (APPENDIX) Procedures: MIGELFaviola Gross/Micro L3 Patient: Marianne Batista [id number] (Continued) Specimen: [id number] Received: 01/13/24 (Continued) Signed (signature on file) Princess Carlos MD 01/15/24 1434 Specimen: [id number] Received: 01/13/24 Status: ORLANDOTonny Tarango Num: [id number] Spec Type: Surgical Subm Dr: Dimas Vivas MD FACS Tissues: A Appendix - Other than Incidental (APPENDIX) Procedures: Faviola Gross/Micro L3 Patient: Marianne Batista [id number] (Continued) Specimen: [id number] Received: 01/13/24 (Continued) CPT Codes 01350 Specimen: [id number] Received: 01/13/24 Status: MICHAEL Tarango Num: [id number] Spec Type: Surgical Subm Dr: Dimas Vivas MD FACS Tissues: A Appendix - Other than Incidental (APPENDIX) Procedures: HE/2, Gross/Micro L3 Patient: Marianne Batista [id number] (Continued) Signed (signature on file) Princess Carlos MD 01/15/24 1434 Normal [facility] XR WRIST 3+ VIEWS LEFTon [...] abnormality. ELECTRONICALLY SIGNED BY: Remy Molina DO [facility] Radiology Study observation (narrative) [facility] XR Wrist - left 3 ViewsOrder ed By: Remy Molina on 08-31-2023 [facility] Work Phone: COVID-19 PCRon 06-07-2020 SARS-CoV-2, LAMAR Not Detected Normal Not Detected [facility] Comment on above: Result Comment: This nucleic acid amplification test was developed and its performance characteristics determined by [employer]. Nucleic acid amplification tests include PCR and [...] assay. Performed By: #### C VDPCR #### [facility] Laboratory [address] [place] [address] [place] Vital Signs Date Time Vital Sign Value Performing Clinician Per delcid 05-04-2024 09:30-0400 Body mass index (BMI) [Ratio] 29.88 kg/m2 [employer] Work Phone: [facility] [employer] 05-04-2024 09:30-0400 Body weight 86.55 kg [employer] Work Phone: [facility] [employer] 05-04-2024 09:30-0400 Diastolic blood pressure 80 mm[Hg] [employer] Work Phone: [facility] 05-04-2024 09:30-0400 Systolic blood pressure 130 mm[Hg] [employer] Work Phone: [facility] 08-31-2023 15:27-0500 Body height 170.2 cm Ofelia Murray MD Work Phone: [facility] 08-31-2023 15:27-0500 Body mass index (BMI) [Ratio] 30.54 kg/m2 Ofelia Murray MD Work Phone: [facility] 08-31-2023 15:27-0500 Body weight 88.45 kg Ofelia Murray MD Work Phone: [facility] 08-31-2023 15:27-0500 Diastolic blood pressure 76 mm[Hg] Ofelia Murray MD Work Phone: [facility] 08-31-2023 15:27-0500 Heart rate 103 /min Ofelia Murray MD Work Phone: [facility] 08-31-2023 15:27-0500 SaO2% (BldA) [Mass fraction] 95 % Ofelia Murray MD Work Phone: [facility] 08-31-2023 15:27-0500 Systolic blood pressure 122 mm[Hg] Ofelia Murray MD Work Phone: [facility] Healthcare Encounters Encounter Date Encounter Type Care Provider Facility Start: 05-15-2024 End: 05-15-2024 [facility] Result Encounter Generic External Data Provider [facility] External Department Unsolicited Start: 05-15-2024 End: 05-15-2024 [facility] Result Encounter Generic External Data Provider [facility] External Department Unsolicited Start: 05-04-2024 End: 05-04-2024 ambulatory [facility] Work Phone: Start: 05-04-2024 End: 05-04-2024 Departed Referred DO [facility] Work Phone: [facility] Path Spec [facility] Start: 05-04-2024 End: 05-04-2024 Patient encounter procedure Tonia Molinao DO Work Phone: [facility] OB Comment on above: Pre-op examination; Enlarged uterus; Menorrhagia with regular cycle; Pelvic pain in female; Dyspareunia in female; Dysmenorrhea Start: 05-04-2024 End: 05-04-2024 Preprocedural examination done Tonia Birmingham DO Work Phone: [facility] Start: 05-04-2024 End: 05-04-2024 ambulatory [...] End: 01-19-2024 Patient encounter procedure Dimas VIVAS [facility]issa Start: 01-13-2024 ambulatory Dimas VIVAS Facility:[facility] Start: 01-12-2024 End: 01-12-2024 ambulatory Dimas Vivas [facility] Work Phone: Start: 01-12-2024 End: 01-12-2024 Departed Referred MD Dimas Vivas Work Phone: [facility] Path Spec [facility] Start: 01-12-2024 End: 01-12-2024 ambulatory Dimas VIVAS Facility:CD:[id number] Start: 10-06-2023 End: 10-06-2023 ambulatory GALINA [...] Screening for malign ant neoplasm of cervix [facility] Start: 03-14-2025 Screening for malign ant neoplasm of breast Mammogram [facility] Start: 09-11-2024 End: 09-11-2024 Patient encounter procedure 09/11/2024 8:30 AM EST Office Visit [facility] [address] [place] [id number] Samantha Camara, GALINA [address] [place] [address] [facility] Start: 05-31-2024 End: 05-31-2024 Patient encounter procedure 05/31/2024 11:20 AM EST Office Visit [facility] [address] [place] [id number] Laura Gonzalez PA [address] [place], [place] [id number] [facility] Start: 05-04-2024 [facility] Start: 03-19-2024 Influenza vaccination Influenz a Vaccine (#1) [facility] Start: 01-16-2024 Influenza vaccination Influenz a Vaccine (#1) [facility] Comment on above: Postponed from 03/19 (Patient Refused) Start: 09-07-2023 End: 09-07-2023 Patient encounter procedure 09/07/2023 8:40 AM EST Office Visit [facility] [address] [place] [phone] Samantha Camara PA [address] [place] [address] [facility] Start: 08-31-2023 End: 08-31-2023 Patient encounter procedure 08/31/2023 3:30 PM EST Office Visit [facility] [address] [facility] [place] [address] Ofelia Murray MD [address] [facility] [place] [address] Arrived [facility] Comment on above: Arrived Start: 03-19-2023 Influenza vaccination Influenz a Vaccine (#1) [facility] Start: 2017 Screening for malign ant neoplasm of breast Mammogram [facility] Start: 2007 Screening for malign ant neoplasm of cervix [facility] Start: 1998 Screening for malign ant neoplasm of cervix Pap Smear [facility] Start: 1977 Screening for malign ant neoplasm of colon [facility] Tissue exam Tissue exam Path ology and Cytology Routine Enlarged uterus Ordered: 05/04/2024 [facility] Work Phone: Comment on above: Ordered: 05/04/2024 Immunizations Immunization Date Immunization Notes Care Provider Fa [facility] 02-28-2022 influenza virus vacc ine, unspecified formulation Ofelia Murray MD Work Phone: [facility] Healthcare Payers Date Payer Category Payer Self-pay 2019 Private Health Insurance [id number] 2013 Unknown 1977 Unknown [id number] [id number] 1977 Unknown [id number] 2.16.840.1.884795.3.579.2.727 1977 Unknown [id number] 2.16.840.1.877659.3.579.2.727 1977 Unknown [id number] 2.16.840.1.891427.3.579.2.727 1977 Unknown [id number] 2.16.840.1.418485.3.579.2.1259 1977 Unknown [id number] 2.16.840.1.218981.3.579.2.9 1977 Unknown [id number] 2.16.840.1.740065.3.579.2.9 1977 Unknown [id number] 2.16.840.1.778903.3.579.2.1259 1977 Unknown [id number] 2.16.840.1.783389.3.579.2.1258 1977 Unknown [id number] 2.16.840.1.315904.3.579.2.1258 1977 Unknown [id number] 2.16.840.1.893161.3.579.2.1258 1977 Unknown [id number] 2.16.840.1.533323.3.579.2.1258 1977 Unknown [id number] 2.16.840.1.046170.3.579.2.1258 1977 Unknown [id number] 2.16.840.1.652496.3.579.2.1258 1977 Unknown [id number] 2.16.840.1.942114.3.579.2.1258 1977 Unknown [id number] 2.16.840.1.275726.3.579.2.1258 1977 Unknown [id number] 2.16.840.1.827176.3.579.2.1258 1977 Unknown [id number] 2.16.840.1.543671.3.579.2.1258 1977 Unknown [id number] 2.16.840.1.708666.3.579.2.1258 1977 Unknown [id number] 2.16.840.1.980866.3.579.2.9 1959 Unknown [id number] Unknown [employer] [id number] Social History Date Type Detail Facility Tobacco smoking stat [facility] Tobacco smoking consumption unknown [facility] [...] Start: 08-31-2023 End: 02-21-2024 Tobacco smoking status [facility] Ex-smoker [facility] Start: 10-21-1991 End: 10-30-2013 History of tobacco use Current smoker [facility] Start: 10-21-1991 End: 10-30-2013 History of tobacco use Cigarette Smoker [facility] Start: 08-31-2023 End: 02-21-2024 Tobacco use and exposure Smokeless tobacco non-user [facility] Start: 08-31-2023 End: 05-04-2024 Alcohol intake Current drinker of alcohol (finding) [facility] Start: 1975 Sex Assigned At Female [facility] Functional Status Date Assessment Result Facility [...] on 05/24/[address] Birmingham at [facility]. MEDICATIONS Current Outpatient Medications Medication Instructions fluocinonide [...] nursing note reviewed. Exam conducted with a washer and crusher tender present. Vitals: Estimated body mass index is [...] reviewed, and patient is to proceed to [facility] OR. Follow Up: Patient is to [...] note No data available for this section [facility] Evaluation note Note Date & Type Note Facility Evaluation note Diagnosis Left wrist pain- Primary Pain in joint, forearm Left wrist pain Pain in joint, forearm documented in this encounter [facility] Evaluation note Note Date & Type Note Facility Evaluation note No assessment information availa [facility] Work Phone: Evaluation note Note Date & Type Note Facility Evaluation note Diagnosis Pre-op examination Enlarged uterus Hypertrophy of uterus Menorrhagia with regular cycle Pelvic pain in female Unspecified symptom associated with female genital organs Dyspareunia in female Dysmenorrhea documented in this encounter [facility] Hospital Discharge instructions Note Date & Type Note Facility Hospital Discharge instructions No data available for this section [facility] Progress note Note Date & Type Note Facility Progress note No data available for this section [facility] Reason for referral (narrative) Consultation (Routine) - Pending Review Note Date & Type Note Facility Reason for referral (narrati ve) Specialty Diagnoses / Procedures Referred By Althea palomo Referred To Contact Orthopaedic Surgery Diagnoses Left wrist pain Ofelia Murray MD [address] [place] [address] Roque Saeed, [address] [address] Referral ID Status Reason Start Date Expiration Date Visits Requested Visits Authorized [id number] Pending Review Specialty Services Required 08/31/2023 02/27/2024 [...] and content) DATE CREATED AUTHOR 06/08/2020 [facility] DATE CREATED AUTHOR AUTHOR'S ORGANIZ ATION 01/21/2024 Liu Antonio [facility] DATE CREATED AUTHOR AUTHOR'S ORGANIZ ATION 05/06/2024 [facility] d[facility] Specialists [facility] DATE CREATED AUTHOR AUTHOR'S ORGANIZ ATION 05/19/2024 [facility] ysician Group Care Teams (unrecognized sec tion and content) Chimney Supervisor Brick Relationship Specialty Start Date End Date Ofelia Murray MD [address] [facility] [place] [address] PCP - General Family Medicine 11/24/22 Chimney Supervisor Brick Relationship Specialty Start Date End Date Ofelia Murray MD [address] [facility] [place] [address] PCP - General Family Medicine 11/24/22 Team Status: Inactive Member Role Status Dates Dimas Vivas MD [facility] Attending Provider Active Start: January 12, 2024 End: January 12, 2024 Chimney Supervisor Brick Relationship Specialty Start Date End Date Ofelia Murray MD [address] [facility] [place] [address] PCP - General Family Medicine 11/24/22 Team Status: Inactive Member Role Status Dates Tonia Birmingham DO Attending Provider Active Start : May 04, 2024 End: May 04, 2024 Chimney Supervisor Brick Relationship Specialty Start Date End Date Ofelia Murray MD [address] [facility] [place] [address] PCP - General Family Medicine 11/24/22 Reason [...] BE BASED ON THE PRIMARY CLINICAL RECORDS. [employer] [facility]. provides no warranty or guarantee of the accuracy or completeness of information in this document.
[2024-05-24] MEDS: CEFAZOLIN SODIUM/DEXTROSE,ISO 2 GM/50 ML PIGGYBACK IV ×2 (14:57→21:02)
[2024-05-24] MEDS: LACTATED RINGER'S SOLUTION 1,000 ML 125 ML IV ×2 (14:57→23:27)
[2024-05-24] MEDS: KETOROLAC TROMETHAMINE 30 MG/ML VIAL IVP (14:58)
[2024-05-24] MEDS: OXYCODONE HCL/ACETAMINOPHEN 5MG/325MG 1 TAB PO ×2 (16:39→22:24)
[2024-05-24] MEDS: ENOXAPARIN SODIUM 40 MG/0.4 ML SYRINGE SUBQ (21:02)
[2024-05-25 03:36] VITALS: BP 156/78; PULSE 79; TEMP 36.7; O2SAT 91
[2024-05-25] MEDS: OXYCODONE HCL/ACETAMINOPHEN 5MG/325MG 1 TAB PO ×2 (05:56→12:04)
[2024-05-25 06:37] LABS: Basophils Percent Auto 0.2 % (0.2-2.0); Hematocrit 31.4 % (36.0-48.0); Hemoglobin 9.5 g/dL (12.0-16.0); Immature Granulocytes Abs Auto 0.04 10^3/uL (0.00-0.03); Immature Granulocytes Pct Auto 0.4 % (0.0-0.5); Lymphocytes Absolute Auto 1.6 10^3/uL (1.2-3.8); Lymphocytes Percent Auto 14.3 % (20.5-60.0); Mean Corpuscular HGB Conc 30.3 g/dL (29.9-35.2); Mean Corpuscular Hemoglobin 21.8 pg (26.7-34.0); Monocytes Absolute Auto 0.9 10^3/uL (0.3-0.8); Monocytes Percent Auto 8.1 % (1.7-12.0); Neutrophils Absolute Auto 8.4 10^3/uL (1.4-6.5); Platelet Count 405 10^3/uL (150-450); Red Blood Count 4.36 10^6/uL (4.20-5.40); Red Cell Distribution Width 17.3 % (11.0-15.0)
[2024-05-25 07:12] VITALS: BP 128/83; PULSE 80; TEMP 36.8; O2SAT 93
[2024-05-25 07:14] VITALS: PULSE 80
[2024-05-25] MEDS: MAGNESIUM HYDROXIDE 2,400 MG/10 ML ORAL.SUSP 2400 MG PO (08:27)
[2024-05-25 12:00] VITALS: BP 123/76; PULSE 88; TEMP 36.7; O2SAT 95
--- NOTE | 2024-05-25 13:42 | P.GYNPN_ITS ---
BARREL TESTER AND DRAINER - PN: Subj Post-Op Interval history: denies n.v.d.f.c pt denies cp sob ct, ambulating and tolerating diet well, positive flatus Subjective: patient reports feeling better, patient has no complaints, patient desires discharge, pain is well controlled and patient is tolerating oral intake Exam Constitutional Vital Signs, click to edit/add: Last Vital Signs Temp 98.0 F 05/25/24 12:00 Pulse 88 05/25/24 12:00 Resp 18 05/25/24 12:00 BP 123/76 05/25/24 12:00 Pulse Ox 95 05/25/24 12:00 O2 Del Method Room Air 05/25/24 12:00 O2 Flow Rate 2 05/24/24 12:37 Documenting provider has reviewed patient's vital signs: yes Common normals: no apparent distress Respiratory Common normals: clear to auscultation bilaterally Cardio Common normals: regular rate and regular rhythm GI Common normals: Normal to inspection, nondistended, normoactive bowel sounds present Extremity Common normals: no calf tenderness Results Labs Labs: Short CBC 05/25/24 Range/Units 06:22 WBC 11.0 (4.0-11.0) 10^3/uL Hgb 9.5 L (12.0-16.0) g/dL Hct 31.4 L (36.0-48.0) % Plt Count 405 (150-450) 10^3/uL BARREL TESTER AND DRAINER - A/P Postoperative Procedures: Procedures Operation Date: 05/24/24 07:30 Actual Procedure Side Surgeon p TERA, Bilateral salpingectomy, Cysto Not Applicable Steve Birmingham DO Postoperative day: 1 Postoperative status BARREL TESTER AND DRAINER: doing well Post-operative plan BARREL TESTER AND DRAINER: routine post-op care, discharge and other (fu 1wk) Fall Risk Details Connolly fall scale risk level: Low Fall Risk Current medications: Current Medications Docusate Sodium (Docusate Sodium 100 Mg Capsule) 100 mg PO BID PRN PRN Reason: Constipation Enoxaparin Sodium (Enoxaparin Sodium 40 Mg/0.4 Ml Syringe) 40 mg SUBQ Q24H [facility] Last Admin: 05/24/24 21:02 Dose: 40 mg Lactated Ringer's (Lactated Ringers) 1,000 mls @ 125 mls/hr IV .Q8H [facility] Last Admin: 05/25/24 07:41 Dose: Not Given Promethazine HCl 25 mg/ Sodium (Chloride) 51 mls @ 204 mls/hr IV Q6H PRN PRN Reason: Nausea And Vomiting Ibuprofen (Ibuprofen 400 Mg Tablet) 800 mg PO Q6H PRN PRN Reason: Pain Ketorolac Tromethamine (Ketorolac Tromethamine 30 Mg/Ml Vial) 30 mg IVP Q6H PRN PRN Reason: Pain Last Admin: 05/24/24 14:58 Dose: 30 mg Ondansetron HCl (Ondansetron Pf 4 Mg/2 Ml Vial) 4 mg IV Q6H PRN PRN Reason: Nausea Oxycodone/Acetaminophen (Oxycodone Hcl/Acetaminophen 5mg/325mg) 1 tab PO Q6H PRN PRN Reason: Pain Last Admin: 05/25/24 12:04 Dose: 1 tab Oxycodone/Acetaminophen (Oxycodone Hcl/Acetaminophen 5mg/325mg) 2 tab PO Q6H PRN PRN Reason: Pain Simethicone (Simethicone 80 Mg Tab.Chew) 80 mg PO P[facility]S PRN PRN Reason: Abdominal Distention Temazepam (Temazepam 15 Mg Capsule) 30 mg PO QHS PRN PRN Reason: Sleep Time Spent With Patient Time: Total time spent is greater than 50% in coordination of care (as documented) at patient's floor/unit and/or counseling patient: Time with patient: less than 15 minutes Urinary Catheter Management Urinary Catheter Management Urethral: Cath placed during this visit: no
== END 2024-05-25 14:31 | disposition home or self-care (01) | DRG 743 ==
LOC: MS 11:15
PROVIDERS: Admitting Provider Obstetrics & Gynecology; PCP Family Medicine; Visit Provider Obstetrics & Gynecology
PROC: 0UT90ZZ Resection of Uterus, Open Approach (ICD-10-PCS; principal; 2024-05-24 07:30)
DX: D25.9 Leiomyoma of uterus, unspecified (principal); N85.2 Hypertrophy of uterus; N94.6 Dysmenorrhea, unspecified; N94.10 Unspecified dyspareunia; R10.2 Pelvic and perineal pain; N92.0 Excessive and frequent menstruation with regular cycle; Z87.891 Personal history of nicotine dependence; K21.9 Gastro-esophageal reflux disease without esophagitis
CPT/HCPCS: 36415; 84702; 85025; 88307; 94667; 94668; J0131; J0665; J0690; J1100; J1171; J1650; J1885; J2250; J2405; J2704; J3010